=== PATIENT | male | born 1995 | race Caucasian/White ===

== ENCOUNTER 2019-07-20 09:07 | Emergency (ER) | payer OTHER ==
[~2019-07-20] VITALS: Ht 185.4 cm; Wt 84.1 kg
[2019-07-20] MEDS ORDERED: TYLENOL 1 GM (09:14)
[2019-07-20] MEDS ORDERED: NS 1,000 ML IV ONE (10:00)
[2019-07-20 10:12] LABS: BASO % 0.1 % (0.0-1.0); EOS % 0.1 % (0.0-3.0); HEMATOCRIT 36.5 % (42.0-52.0); HEMOGLOBIN 11.7 g/dl (13.5-17.5); LYMPH # 0.7 10^3/uL (1.5-5.0); MEAN CORPUSCULAR HEMOGLOBIN 28.7 pg (27.0-33.0); MEAN CORPUSCULAR HGB CONC 32.1 g/dl (32.0-36.5); MEAN CORPUSCULAR VOLUME 89.7 fl (80.0-96.0); MONO # 0.5 10^3/uL (0.0-0.8); MONO % 6.4 % (0.0-5.0); NEUTROPHILS # 6.9 10^3/uL (1.5-8.5); NEUTROPHILS % 84.9 % (36.0-66.0); PLATELET COUNT, AUTOMATED 253 10^3/uL (150-450); RED BLOOD COUNT 4.07 10^6/uL (4.30-6.10); WHITE BLOOD COUNT 8.1 10^3/uL (4.0-10.0)
--- NOTE | 2019-07-20 10:12 | REP ---
Chest x-ray: Two views. History: Fever and 56 . Comparison study: No comparison study . Findings: The lungs are well inflated and free of infiltrate. The pleural angles are sharp. The heart size is normal. Pulmonary vasculature is not increased. No significant bony abnormality is seen. Impression: Negative chest x-ray. Electronically Signed by Jonathon Levine MD 07/20/2019 10:03 A
[2019-07-20 10:49] LABS: INFLUENZA A AMPLIFICATION NEGATIVE (NEGATIVE); INFLUENZA B AMPLIFICATION NEGATIVE (NEGATIVE)
[2019-07-20 11:01] LABS: ALT/SGPT 27 U/L (12-78); AMYLASE 40 U/L (25-115); BLOOD UREA NITROGEN 12 MG/DL (7-18); CALCIUM LEVEL 8.4 MG/DL (8.5-10.1); CARBON DIOXIDE LEVEL 27 MEQ/L (21-32); CHLORIDE LEVEL 104 MEQ/L (98-107); CREATININE FOR GFR 0.96 MG/DL (0.70-1.30); GLOMERULAR FILTRATION RATE > 60.0 (>60); GLUCOSE, FASTING 100 MG/DL (70-100); LIPASE 56 U/L (73-393); POTASSIUM SERUM 4.3 MEQ/L (3.5-5.1); SODIUM LEVEL 137 MEQ/L (136-145); TOTAL PROTEIN 6.2 GM/DL (6.4-8.2)
[2019-07-20 11:03] LABS: MONO SCRN NEGATIVE (NEGATIVE)
[2019-07-20 11:18] LABS: APPEARANCE, URINE CLEAR (CLEAR); BACTERIA, URINE AUTO NEGATIVE (NEGATIVE); BILIRUBIN, URINE AUTO NEGATIVE (NEGATIVE); BLOOD, URINE BLOOD NEGATIVE (NEGATIVE); COLOR, URINE YELLOW (YELLOW); GLUCOSE, URINE (UA) AUTO NEGATIVE (NEGATIVE); KETONE, URINE AUTO NEGATIVE (NEGATIVE); LEUKOCYTE ESTERASE, URINE AUTO NEGATIVE (NEGATIVE); NITRITE, URINE AUTO NEGATIVE (NEGATIVE); PROTEIN, URINE AUTO NEGATIVE (NEGATIVE); RBC, URINE AUTO 2 /HPF (0-3); SPECIFIC GRAVITY URINE AUTO 1.013 (1.002-1.035); SQUAMOUS EPITHELIAL CELL UR AU 0 /HPF (0-6); UROBILINOGEN, URINE AUTO 0.2 mg/dL (0.0-2.0); WBC, URINE AUTO 1 /HPF (0-3)
[2019-07-20] MEDS ORDERED: ISOVUE-370 76% 100ML VIAL (Q9967) As Ordered ONE (11:34)
--- NOTE | 2019-07-20 12:19 | REP ---
CT abdomen and pelvis with IV but without oral contrast: History: Right upper quadrant pain, fever, fatigue. No comparison study. CT contrast dose: 100 mL of intravenous Isovue [address] findings: The liver is normal in size, homogeneous in texture. The spleen is enlarged measuring 15.9 cm in greatest dimension. It is homogeneous. No focal splenic lesion is observed. No abnormality is noted in the pancreas or gallbladder. No adrenal abnormality is observed. The kidneys enhance symmetrically and are morphologically intact. No retroperitoneal mass or adenopathy is observed. Small and large intestinal bowel loops are unremarkable. A normal appendix is seen medial to the cecum in the right lower quadrant. There is a small quantity of free fluid in the pelvic reflections and in the right inguinal region. Small and large bowel loops are normal in the abdomen and pelvis. There is no evidence of free intraperitoneal air. No bony destructive lesion is appreciated. Impression: Moderate enlargement of the spleen, 15.8 cm. Minimal ascitic fluid visible in the peritoneal reflections of the pelvis. No other abnormality. Normal appendix seen. Electronically Signed by Jonathon Levine MD 07/20/2019 01:13 P
[2019-07-20] MEDS ORDERED: KETOROLAC 30 MG/ML VIAL (J1885) IV ONE (14:00)
[2019-07-20] MEDS ORDERED: ACETAMINOPHEN 325 MG TAB PO ONE (14:00)
[2019-07-20 15:52] VITALS: BP 132/61
--- NOTE | 2019-07-21 10:41 | ED PDOC ---
Post-Departure Follow-Up ft rene ryan faxed fomral report of ct abd/p for fu Rosa Maria Scott MD Jul 21, 2019 10:41
[2019-07-22 00:16] LABS: Lyme Disease IgG/IgM Antibodie <0.91 ISR (0.00-0.90); Lyme Disease IgM Ab Quantitati <0.80 index (0.00-0.79)
== END 2019-07-20 16:02 | disposition home or self-care (01) ==
LOC: M ED 09:07
DX: B34.8 Other viral infections of unspecified site (principal)
CPT/HCPCS: 71046; 74177; 80053; 81001; 82150; 83605; 83690; 85025; 86308; 86617; 87502; 87798; 87880; 96361; 96374; 99284; J1885; Q9967

== ENCOUNTER 2019-07-24 14:47 | Inpatient (IN) | payer OTHER ==
[~2019-07-24] VITALS: Ht 185.4 cm; Wt 87.9 kg
[~2019-07-24 14:47] MED LIST: TYLENOL 1 GM
[2019-07-24] MEDS ORDERED: ACETAMINOPHEN 325 MG TAB PO ONE (16:00)
[2019-07-24] MEDS ORDERED: NS 1,000 ML IV ONE (16:00)
--- NOTE | 2019-07-24 16:22 | REP ---
Clinical: Cough and dyspnea . Comparison: 07/20/2019 . Technique: PA and lateral. Findings: The mediastinum and cardiac silhouette are normal. The lung luna are clear and without acute consolidation, effusion, or pneumothorax. The skeletal structures are intact and normal. Impression: 1. No acute cardiopulmonary process. Electronically Signed by Elvin Dotson MD 07/24/2019 04:14 P
[2019-07-24 17:39] LABS: ALBUMIN 3.1 GM/DL (3.2-5.2); ALT/SGPT 30 U/L (12-78); BILIRUBIN,DIRECT 0.1 MG/DL (0.0-0.2); BILIRUBIN,TOTAL 0.5 MG/DL (0.2-1.0); BLOOD UREA NITROGEN 15 MG/DL (7-18); CALCIUM LEVEL 8.9 MG/DL (8.5-10.1); CARBON DIOXIDE LEVEL 27 MEQ/L (21-32); CHLORIDE LEVEL 104 MEQ/L (98-107); CREATININE FOR GFR 0.94 MG/DL (0.70-1.30); GLOMERULAR FILTRATION RATE > 60.0 (>60); GLUCOSE, FASTING 90 MG/DL (70-100); SODIUM LEVEL 139 MEQ/L (136-145); TOTAL PROTEIN 6.7 GM/DL (6.4-8.2)
[2019-07-24 17:40] LABS: BASO % 0.1 % (0.0-1.0); EOS % 0.1 % (0.0-3.0); HEMATOCRIT 33.8 % (42.0-52.0); HEMOGLOBIN 11.1 g/dl (13.5-17.5); LYMPH # 0.7 10^3/uL (1.5-5.0); LYMPH % 7.4 % (24.0-44.0); MEAN CORPUSCULAR HEMOGLOBIN 29.1 pg (27.0-33.0); MEAN CORPUSCULAR HGB CONC 32.8 g/dl (32.0-36.5); MEAN CORPUSCULAR VOLUME 88.5 fl (80.0-96.0); MONO # 0.6 10^3/uL (0.0-0.8); MONO % 6.3 % (0.0-5.0); NEUTROPHILS # 8.6 10^3/uL (1.5-8.5); NEUTROPHILS % 85.6 % (36.0-66.0); PLATELET COUNT, AUTOMATED 236 10^3/uL (150-450); RED BLOOD COUNT 3.82 10^6/uL (4.30-6.10)
[2019-07-24] MEDS ORDERED: ISOVUE-370 76% 100ML VIAL (Q9967) As Ordered ONE (17:47)
--- NOTE | 2019-07-24 18:17 | REPVR ---
PROCEDURE INFORMATION: Exam: CT Angiography Chest With Contrast Exam date and time: 07/24/2019 4:12 PM Age: 24 years old Clinical history: Chest pain; Additional info: Cp fever TECHNIQUE: Imaging protocol: Computed tomographic angiography of the chest with intravenous contrast. 3D rendering: MIP reconstructed images were created and reviewed. Radiation optimization: All CT scans at this facility use at least one of these dose optimization techniques: automated exposure control; mA and/or kV adjustment per patient size (includes targeted exams where dose is matched to clinical indication); or iterative reconstruction. Contrast material: ISOVUE 370; Contrast volume: 75 ml; Contrast route: IV; COMPARISON: CR Chest, 2 view PA, Lat 07/24/2019 4:04 PM FINDINGS: Aorta: There is opacification of the aorta which appears intact. There is opacification of the pulmonary arteries with no evidence of pulmonary embolus. Thyroid: Normal thyroid. Lungs: Clear appearing lungs. Pleural space: Unremarkable. No pneumothorax. No pleural effusion. Heart: Unremarkable. No cardiomegaly. No pericardial effusion. Spleen: There is splenomegaly. Lymph nodes: Unremarkable. No enlarged lymph nodes. Bones/joints: There is mild kyphosis of the thoracic spine. Soft tissues: Unremarkable. IMPRESSION: 1. No evidence of pulmonary embolus. 2. Moderate splenomegaly . Electronically signed by: Joe Graf On 07/24/2019 18:17:40 PM
--- NOTE | 2019-07-24 20:04 | ECGEPIP ---
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
[2019-07-24] MEDS ORDERED: SODIUM CHLORIDE 0.9% 1000ML IV SCH (20:15)
[2019-07-24] MEDS ORDERED: ACET-907 PO (20:24)
[2019-07-24] MEDS ORDERED: IBUP200C28 PO (20:24)
[2019-07-24] MEDS ORDERED: IBUPROFEN 600 MG TAB PO ONE (20:45)
--- NOTE | 2019-07-24 20:55 | HPEPDOC ---
General Date of Admission Jul 24, 2019 at 20:02 Date of Service: Jul 24, 2019 Chief Complaint The patient is a 24-year-old male admitted with a reason for visit of Sepsis. Source: Patient Exam Limitations: No limitations Timing/Duration: Week(s) Severity: Severe Associated Symptoms: Fever, Malaise, Weakness History of Present Illness Patient is 24 years old male with past medical history of hypertension presented to the hospital with fever, chills, generalized fatigue. Patient stated that he has been feverish for 4 weeks, his fever was associated with malaise and fatigue. Patient stated that he lost his appetite. 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 He stated that when he was in the field he developed fever and then he returned to [place] he has been having fever up to 103 every day. Patient denies nausea, vomiting, diarrhea, joint pain, skin changes, visual changes, headache, dysuria. He stated that he was in the clinic in [place], he had lab work which did not reveal any abnormalities. In emergency room patient was found to have fever of 102, dyspnea with respiration rate of 20 and tachycardia with heart rate of 110. EKG showed sinus tachycardia with LVH. CTA was done and did not show any i nfiltrates or pulmonary emboli. CT of abdomen and pelvis was done on 07/20/19 and showed Moderate enlargement of the spleen, 15.8 cm. Minimal ascitic fluid visible in the peritoneal reflections of the pelvis. No other abnormality. Normal appendix seen. Usually his fever alleviated by Tylenol. Home Medications Scheduled PRN Acetaminophen (Tylenol) 325 Mg Tablet, 975 MG PO QID PRN for PAIN / FEVER, (Reported) Ibuprofen (Ibuprofen) 200 Mg Capsule, 600 MG PO QID PRN for PAIN / FEVER, (Reported) Allergies Coded Allergies: No Known Allergies (Unverified , 07/20/19) Past Medical History Medical History Hypertension Family History Father from heart attack Social History * Smoker: Denies, former Smoker Alcohol: Denies Drugs: denies A-FIB/CHADSVASC A-FIB History Current/History of A-Fib/PAF?: No Current PO Anticoag Therapy: No Review of Systems Constitutional: Reports: Chills, Fever, Weakness Eyes: Denies: Pain ENT: Denies: Head Aches Skin: Denies: Rash, Lesions Pulmonary: Reports: Dyspnea; Denies: Cough Cardiovascular: Denies: Chest Pain Gastrointestinal: Denies: Nausea, Vomiting Genitourinary: Denies: Dysuria, Frequency Hematologic: Denies: Bruising, Bleeding Excessively Endocrine: Denies: Polydipsia, Polyphagia Musculoskeletal: Denies: Neck Pain, Back Pain Neurological: Denies: Weakness Psych: Reports: Mood Normal Physical Examination General Exam: Positive: Alert, Cooperative Eye Exam: Positive: PERRLA, Conjunctiva & lids normal, EOMI ENT Exam: Positive: Mucous membr. moist/pink Neck Exam: Positive: Supple; Negative: JVD Chest Exam: Positive: Clear to auscultation Heart Exam: Positive: Tachycardic Telemetry: Positive: Sinus; Negative: Atrial fibrillation Abdomen Exam: Positive: Normal bowel sounds Extremity Exam: Negative: Clubbing, Cyanosis Skin Exam: Positive: Nl turgor and temperature; Negative: Rash Neuro Exam: Positive: Normal Gait, Strength at 5/5 X4 ext, Cranial Nerves 3-12 NL Psych Exam: Positive: Mental status NL Vital Signs Vital Signs Date Time Temp Pulse Resp B/P (MAP) Pulse Ox O2 Delivery O2 Flow Rate FiO2 07/24/19 20:09 101.6 113 18 129/59 (82) 99 Room Air Laboratory Data Labs 24H Laboratory Tests 2 07/24/19 16:56: Immature Granulocyte % (Auto) 0.5, Neutrophils (%) (Auto) 85.6H, Lymphocytes (%) (Auto) 7.4L, Monocytes (%) (Auto) 6.3H, Eosinophils (%) (Auto) 0.1, Basophils (%) (Auto) 0.1, Neutrophils # (Auto) 8.6H, Lymphocytes # (Auto) 0.7L, Monocytes # (Auto) 0.6, Eosinophils # (Auto) 0.0, Basophils # (Auto) 0.0, Nucleated Red Blood Cells % (auto) 0.0, Anion Gap 8, Glomerular Filtration Rate > 60.0, Lactic Acid Level 1.1, Calcium Level 8.9, Total Bilirubin 0.5, Direct Bilirubin 0.1, Aspartate Amino Transf (AST/SGOT) 17, Alanine Aminotransferase (ALT/SGPT) 30, Alkaline Phosphatase 70, Total Protein 6.7, Albumin 3.1L, Albumin/Globulin Ratio 0.86L 07/24/19 16:57: Urine Color YELLOW, Urine Appearance CLEAR, Urine pH 5.0, Urine Specific [place] 1.017, Urine Protein NEGATIVE, Urine Glucose (UA) NEGATIVE, Urine Ketones NEGATIVE, Urine Blood NEGATIVE, Urine Nitrite NEGATIVE, Urine Bilirubin N EGATIVE, Urine Urobilinogen 0.2, Urine Leukocyte Esterase NEGATIVE, Urine WBC (Auto) 1, Urine RBC (Auto) 2, Urine Hyaline Casts (Auto) 0, Urine Bacteria (Auto) NEGATIVE, Urine Squamous Epithelial Cells 0, Urine Mucus (Auto) SMALL, Urine Sperm (Auto) CBC/BMP Laboratory Tests 07/24/19 16:56 Microbiology Microbiology 07/24/19 Blood Culture, Received Pending 07/24/19 Respiratory Virus Panel (PCR) (JODIE) - Final, Complete 07/24/19 Blood Culture, Received Pending Assessment/Plan Patient is 24 years old male with past medical history of hypertension presented hospital with fever, chills, generalized fatigue. Patient stated that he has been feverish for 4 weeks, his fever was associated with malaise and fatigue. Patient stated that he lost his appetite. 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 He stated that when he was in the field he developed fever and then he returned to [place] he has been having fever up to 103 every day Problems (1) Sepsis Status: Acute Problem Text: Patient has a fever on presentation 102, with tachycardia and dyspnea Patient has been having fever up to 103 daily for past for 4 weeks after he returned from [place] IV fluid Vancomycin and Zosyn IV Blood culture, urine Cx (2) Fever Status: Acute Problem Text: Patient qualified for fever of unknown origin. Patient has an enlarge spleen on CT with normocytic anemia Differential diagnosis includes autoimmune diseases versus viral versus bacterial diseases I will check patient for EBV, CMV,MATTEO, rheumatoid factor, CRP, cryoglobulin, LDH, HIV, hepatitis panel, sedimentation rate Will check peripheral smear for malaria We will check PCR for Babesia I will repeat blood culture We'll check for QuantiFERON Gold Echo ordered (3) Abnormal EKG Status: Acute Problem Text: EKG showed sinus tachycardia with LVH and with questionable ST depression in the anterolateral leads Patient denies any chest pain Troponin ordered We will repeat EKG Telemetry (4) Anemia Status: Acute Problem Text: Normocytic anemia Patient has enlarged spleen, concern for sequestration We will check B12, folate, iron panel Plan / VTE VTE Prophylaxis Ordered?: Yes ABNER QUINN DO Jul 24, 2019 20:55
[2019-07-24] MEDS ORDERED: PIPERACILLIN/TAZOBACTAM SOD 4.5 GM in D5W MINI-BAG PLUS 50 ML IV SCH (21:00)
[2019-07-24 21:02] LABS: CK-MB VALUE MASS < 1.0 NG/ML (<3.6); CPK CREATINE PHOSPHOKINASE 48 U/L (39-308); MB/CK RELATIVE INDEX 2.08 (< OR =4); TROPONIN I < 0.02 NG/ML (< 0.10)
--- NOTE | 2019-07-24 21:18 | PHACANCOPD ---
PHARMACY VANCOMYCIN DOSING Pt Demographics Demographics Patient Age:24 , Weight:86.360 , Gender: male Adjusted Body Weight Date: 07/24/19, Adjusted Body Weight: [82.5] Kg Events Past 24 Hours Events Past 24 Hours: NO: Dialysis, Diuretic Therapy, Change in CrCl, Fever, Elevation in WBC, Pending Diagnostics, Pending Procedures, Other Vancomycin Vancomycin indication: SEPSIS Vancomycin Target Ranges: 15-20 mcg/ml Vancomycin Load Y/N: Yes Load Dose Date Time Vancomycin Load Dose: 2G Date:07/24/19 Time:22:00 Vancomycin Dose Date: 07/24/19. Current Vancomycin Dose: [1G IV Q8H] Intermittent Dosing?: No Labs Labs Item Value Date Time White Blood Count 10.0 10^3/uL 07/24/19 1656 Neutrophils # (Auto) 8.6 10^3/uL H 07/24/19 1656 Creatinine 0.94 MG/DL 07/24/19 1656 Micro Microbiology 07/24/19 Blood Culture, Received Pending 07/24/19 Respiratory Virus Panel (PCR) (OJDIE) - Final, Complete 07/24/19 Blood Culture, Received Pending Creatinine Clearance Date:07/24/19. Creatinine Clearance: [134ml/min]. Pending Labs TROUGH 07/25/19@21 Assessment and Plan Maintaining Current Dose?: Yes Reason for dose change: No Dose Change Pharmacist Note Pharmacist Note Date: 07/24/19. Pharmacist note:Pt is a 24 year old male being treated for sepsis goal trough 15-20mcg/ml. The patient has not been treated with vancomycin here at [facility] before. To achieve goal a 2g loading dose will start 07/24/19 @22:00. Maintenance therapy will consist of 1g IV q8h starting 07/25/19 @06:00. A trough is scheduled for 07/25/19 @21:00. We will continue to monitor and adjust the dose as needed. PATRICK LOPEZ PHARMACY Jul 24, 2019 21:18
[2019-07-24 21:23] LABS: ERYTHROCYTE SEDIMENTATION RATE 50 mm/hr (0-15)
[2019-07-24 21:49] LABS: HIV 1&2 SCREEN CENTAUR NEGATIVE (NEGATIVE)
[2019-07-24 21:50] VITALS: BP 147/68
[2019-07-24] MEDS: NS 1,000 ML IV SCH (21:53)
[2019-07-24] MEDS: HEPARIN SOD (PORCINE) 5000 UNITS/ML VIAL SC SCH (22:18)
[2019-07-24] MEDS: PIPERACILLIN/TAZOBACTAM SOD 3.375 GM in D5W MINI-BAG PLUS 50 ML IV SCH (22:18)
[2019-07-24] MEDS ORDERED: VANCOMYCIN HCL 1,000 MG, VIAL MATE ADAPTER 1 EACH in D5W 250 ML IV ONE (23:00)
[2019-07-24] MEDS: VANCOMYCIN HCL 1,000 MG, VIAL MATE ADAPTER 1 EACH in D5W 250 ML IV SCH (23:22)
[2019-07-24 23:59] VITALS: BP 136/60
[2019-07-25] VITALS (7 sets, daily range): BP systolic 122–144; BP diastolic 57–68
[2019-07-25] MEDS: NS 1,000 ML IV SCH ×3 (02:17→20:40)
[2019-07-25] MEDS ORDERED: LISINOPRIL 10 MG TAB PO ONE (02:30)
[2019-07-25] MEDS: PIPERACILLIN/TAZOBACTAM SOD 3.375 GM in D5W MINI-BAG PLUS 50 ML IV SCH ×3 (04:40→20:40)
[2019-07-25] MEDS: VANCOMYCIN HCL 1,000 MG, VIAL MATE ADAPTER 1 EACH in D5W 250 ML IV SCH ×2 (05:43→14:52)
[2019-07-25 05:44] LABS: HEMATOCRIT 30.8 % (42.0-52.0); HEMOGLOBIN 9.7 g/dl (13.5-17.5); MEAN CORPUSCULAR HEMOGLOBIN 28.3 pg (27.0-33.0); MEAN CORPUSCULAR HGB CONC 31.5 g/dl (32.0-36.5); MEAN CORPUSCULAR VOLUME 89.8 fl (80.0-96.0); PLATELET COUNT, AUTOMATED 197 10^3/uL (150-450); RED BLOOD COUNT 3.43 10^6/uL (4.30-6.10)
[2019-07-25 06:27] LABS: BLOOD UREA NITROGEN 15 MG/DL (7-18); CALCIUM LEVEL 7.5 MG/DL (8.5-10.1); CARBON DIOXIDE LEVEL 27 MEQ/L (21-32); CHLORIDE LEVEL 109 MEQ/L (98-107); CREATININE FOR GFR 0.78 MG/DL (0.70-1.30); GLOMERULAR FILTRATION RATE > 60.0 (>60); GLUCOSE, FASTING 101 MG/DL (70-100); IRON (FE) 14 UG/DL (65-175); LDH LACTATE DEHYDROGENASE 164 U/L (87-241); MAGNESIUM LEVEL 2.3 MG/DL (1.8-2.4); PERCENT SATURATION 11.2 % (19.7-50.0); POTASSIUM SERUM 3.9 MEQ/L (3.5-5.1); RHEUMATOID FACTOR QUANT < 10.0 IU/ML (<15.0); SODIUM LEVEL 140 MEQ/L (136-145); TOTAL IRON BINDING CAPACITY 125 UG/DL (250-450)
[2019-07-25] MEDS: LISINOPRIL 10 MG TAB PO SCH (08:34)
[2019-07-25] MEDS: ACETAMINOPHEN TAB 650MG DOSE (2X325MG) PO PRN (08:35)
[2019-07-25] MEDS: HEPARIN SOD (PORCINE) 5000 UNITS/ML VIAL SC SCH ×2 (08:35→20:40)
[2019-07-25 14:23] LABS: FOLATE 18.1 NG/ML (>5.4); VITAMIN B12 LEVEL 450 PG/ML (247-911)
--- NOTE | 2019-07-25 15:51 | IPNPDOC ---
Text Note Date of Service The patient was seen on 07/25/19. NOTE Subjective: -Afebrile overnight -This AM had a low grade temp -Complaining of R calf pain with ambulation that started a few days ago Objective: Vitals: see below. Hemodynamically stable, with low grade temp this AM General Exam: Well appearing, well developed young man, AOx3, NAD, appears flushed Eye Exam: ERRLA, Conjunctiva & lids normal, EOMI, anicteric, no injection ENT Exam: MMM, posterior oropharynx without exudates or erythema Neck Exam: Supple, no JVD, no adenopathy Chest Exam: CAT Heart Exam: RRR, no mrg Telemetry: Sinus without significant ectopy and no arrhythmias Abdomen Exam: Normal bowel sounds, soft, nontender, no palpable hepatomegaly or splenomegaly despite imaging confirming an enlarged spleen Extremity Exam: WWP, no LE edema, 2+ DP pulses, RLE with calf without erythema, palpable cords, lesions, rashes or swelling Skin Exam: normal temperature, no rashes, petechiae or sign of bruising or lesions Neuro Exam: Normal Gait, Strength at 5/5 X4 ext, Cranial Nerves 3-12 wnl Psych Exam: AOx3 Labs: Reviewed, see below. Imaging: reviewed see below. Micro: Pending UCx, quant gold, CMV, EBV, HIV, babesia, ehrlichia, Hep serologies, zika and malaria. BCX GREW GPCs pairs and chains. MRSA was negative Assessment/Plan 24 years old male with past medical history of hypertension presented hospital with fever, chills, generalized fatigue for 4 weeks in the setting of recently being in [place] for training camp now found to have radiographic splenomegaly with normocytic anemia and neutrophilia now with confirmed GPC in pairs and chains bacteremia with unclear source, pending extensive infectious work up and no antione fevers since starting vanc/zosyn last night, now de-escalated to zosyn after MRSA was negative and he grew GPCs in pairs and chains likely strep. Problems (1) Sepsis: Fever, tachycardia with SOB and generalized weakness, now with confirmed bacteremia -Had a fever on presentation 102, with tachycardia and dyspnea, reporting daily fevers up to 103 for 4 weeks -s/p IV fluid, continuing on 150cc/hr -continue zosyn IV, MRSA PCR negative so DC's vanc -follow up Blood culture speciation and sensivities, urine Cx and extensive infectious workup noted below (2) Fever -At this time, presented with fever of unknown etiology with an enlarged spleen on CT with normocytic anemia -Differential diagnosis includes autoimmune diseases versus viral versus bacterial diseases -Follow up extensive work up: EBV, CMV,MATTEO, rheumatoid factor, CRP, cryoglobulin, LDH, HIV, hepatitis panel -Elevated ESR and CRP suggesting significant inflammation -Pending malaria smear -follow up Babesia, Ehrlichia PCR -follow up Quant Gold -follow up pending TTE (3) Abnormal EKG: EKG showed sinus tachycardia with LVH and with questionable ST depression in the anterolateral leads without chest pain -Troponin negative -Telemetry without abnormal activity at this time -Pending TTE (4) Normocytic Anemia -Patient with noted enlarged spleen while having fevers, at this time with concern for sequestration -follow up B12, folate, iron panel (5) Hypertension: -Continue home lisinopril (6) RLE pain: -No evidence of soft tissue infection -RLE doppler US to r/o clot DVT prophylaxis: Heparin SQ Diet: Regular VS,Fishbone, I+O VS, Fishbone, I+O Laboratory Tests 07/24/19 16:56 07/25/19 05:20 Vital Signs Date Time Temp Pulse Resp B/P (MAP) Pulse Ox O2 Delivery O2 Flow Rate FiO2 07/25/19 04:00 97.0 85 16 141/65 (90) 99 Room Air I&O- Last 24 Hours up to 6 AM 07/25/19 06:00 Intake Total 2080 ml Output Total 650 ml Balance 1430 ml RAMANDEEP ROCK MD Jul 25, 2019 08:15
--- NOTE | 2019-07-25 17:40 | REPVR ---
PROCEDURE INFORMATION: Exam: US Duplex Right Lower Extremity Veins, Limited Exam date and time: 07/25/2019 5:10 PM Age: 24 years old Clinical history: Pain; Leg, lower; Right; Additional info: R calf pain TECHNIQUE: Imaging protocol: Real-time Duplex ultrasound of the Right Lower Extremity with 2-D rogers scale, color Doppler flow and spectral waveform analysis with image documentation. Limited exam was focused on the right lower extremity veins. COMPARISON: No relevant prior studies available. FINDINGS: Right deep veins: Unremarkable. The common femoral, femoral, popliteal and posterior tibial veins are patent without thrombus. Normal Doppler waveforms. Normal compressibility and/or augmentation response. Right superficial veins: Unremarkable. Saphenofemoral junction is patent without thrombus. Soft tissues: Unremarkable. IMPRESSION: No sonographic evidence of deep vein thrombosis. Electronically signed by: Venkatesh Marie On 07/25/2019 17:39:57 PM
--- NOTE | 2019-07-25 21:27 | ECHO ---
DATE OF PROCEDURE: 07/25/2019 REFERRING PHYSICIAN: Zeus Aldridge MD INDICATION: Abnormal ECG. HEIGHT: 185 cm WEIGHT: 86 kg. DIMENSIONS: IVS: 1.1 LV: 5.2 LVPW: 1.1 LA: 4.4 Aorta: 2.5 IVC: 2.1 Mitral E wave velocity: 111, A wave: 77 E prime septal: 10.7 E prime lateral: 21.1 FINDINGS The study is of excellent technical quality. The patient is in sinus tachycardia. Left ventricle is normal size and normal systolic function, I estimate left ventricular ejection fraction (LVEF) 70%. No segmental wall motion abnormalities are appreciated. Right ventricle also appears normal. Left atrium is mildly enlarged. Right atrium is probably normal size. The aortic valve has some thickening of cusps and there is an echodensity attached to the edge of cardiac cusp that probably represents thickening but in appropriate setting could also represent small vegetation measuring 0.8 x 0.3 cm. There is no obvious restriction of cusp mobility. Mitral, tricuspid and pulmonic valves appear normal. No pericardial effusion is noted. Inferior vena cava is mildly dilated but appropriately collapses with respiration. Aortic root and aortic arch appear normal. There appears to be some narrowing in the segment of descending aorta that potentially could represent mild coarctation. Doppler interrogation of aortic valve reveals trivial stenosis with mean gradient 11 mmHg and approximately moderate aortic insufficiency with very eccentric aortic insufficiency jet abutting anterior mitral leaflet. There is no significant mitral stenosis or insufficiency. There is trace tricuspid insufficiency with calculated likely normal pulmonary artery pressure. Pulmonic valve is functionally competent. Evaluation of diastolic function is normal based on mitral inflow pattern and tissue Doppler imaging of mitral annulus. There is minimally increased gradient across segment of descending aorta that appears narrowed by 2-D imaging. CONCLUSIONS 1. Study is of excellent technical quality. 2. Normal left ventricle (LV) size and systolic function, normal diastolic function. 3. Thickening of the edges of aortic cusps with echodensity attached which could represent only thickening of calcification, but in appropriate setting could also represent a small vegetation (0.8 x 0.3 cm). Resulting moderate aortic insufficiency. 4. No additional valvular disease. 5. Likely normal mildly elevated central venous pressure and normal pulmonary artery pressure. 6. Cannot completely rule out minimal coarctation of the descending aorta with fairly trivial gradient. COMMENT: I do recommend appropriate evaluation for possible endocarditis if fitting clinical picture.
[2019-07-26] MEDS: NS 1,000 ML IV SCH ×5 (03:46→19:46)
[2019-07-26 04:00] VITALS: BP 140/60
[2019-07-26] MEDS: PIPERACILLIN/TAZOBACTAM SOD 3.375 GM in D5W MINI-BAG PLUS 50 ML IV SCH ×3 (04:49→20:47)
[2019-07-26 08:00] VITALS: BP 133/61
[2019-07-26] MEDS: HEPARIN SOD (PORCINE) 5000 UNITS/ML VIAL SC SCH ×2 (09:16→20:47)
[2019-07-26] MEDS: LISINOPRIL 10 MG TAB PO SCH (09:16)
[2019-07-26 09:31] LABS: HEPATITIS B SURFACE ANTIGEN NEGATIVE (NEGATIVE)
[2019-07-26 09:58] LABS: HEPATITIS C VIRUS ABY INDEX 0.1 INDEX (<0.8)
[2019-07-26 10:00] LABS: HEPATITIS A ANTIBODY IGM NEGATIVE (NEGATIVE)
[2019-07-26 11:01] LABS: HEPATITIS B CORE ANTIBODY IGM NEGATIVE (NEGATIVE)
[2019-07-26 12:00] VITALS: BP 139/63
[2019-07-26 14:07] LABS: ANTINUCLEAR ANTIBODIES DIRECT Negative (Negative)
--- NOTE | 2019-07-26 14:15 | IPNPDOC ---
Text Note Date of Service The patient was seen on 07/26/19. NOTE Subjective: -Afebrile since starting antibiotics -Complaining of persistent R calf pain only with ambulation, was negative for clot and no clinical cellulitis -Had an update discussion about why he is still in the hospital and upcoming MENDEZ, ID consut and pending speciation and sensitivities for the GPCs in his blood. Both him and his were visibly concerned and anxious. Were reassured after our discussion. Objective: Vitals: see below. Hemodynamically stable General Exam: Well appearing, well developed young man, AOx3, NAD Eye Exam: PERRLA, Conjunctiva & lids normal, EOMI, anicteric, no injection ENT Exam: MMM, posterior oropharynx without antione exudates Neck Exam: Supple, no JVD, no adenopathy Chest Exam: CAT Heart Exam: RRR, no mrg auscultated on exam Abdomen Exam: Normal bowel sounds, soft, nontender, no palpable hepatomegaly or splenomegaly despite imaging confirming an enlarged spleen Extremity Exam: WWP, no LE edema, 2+ DP pulses, RLE with calf without erythema, palpable cords, lesions, rashes or swelling Skin Exam: normal temperature, no rashes, petechiae or sign of bruising or lesions Neuro Exam: Normal Gait, Strength at 5/5 X4 ext, Cranial Nerves 3-12 wnl Psych Exam: AOx3 Labs: Reviewed, see below. Imaging: reviewed see below. Micro: UA bland, quant gold negative, CMV pending, EBV pending, HIV negative, babesia pending, ehrlichia pending, Hep serologies pending, zika pending and malaria negative. BCX GREW GPCs pairs and chains. MRSA was negative. Resp viral panel was negative. Assessment/Plan 24 years old man with a history of hypertension who presented to the hospital with fever, chills, generalized fatigue for 4 weeks in the setting of recently being in [place] for training camp with reports of sleeping in wet tent and sleeping back outside as part of training in the rain, and transient R sided sore throat, found to have radiographic splenomegaly with normocytic anemia and neutrophilia now with confirmed GPC in pairs and chains bacteremia with unclear source, pending extensive infectious work up and no antione fevers since starting antibiotics, now de-escalated to zosyn, however with TTE c/f a small aortic veg vs. calcification pending a MENDEZ. Problems (1) Sepsis: Fever, tachycardia with SOB and generalized weakness, now with confirmed bacteremia -Had a fever on presentation 102, with tachycardia and dyspnea, reporting daily fevers up to 103 for 4 weeks -s/p IV fluid, continuing on 150cc/hr, will dc today -continue zosyn IV, MRSA PCR negative so DC'd vanc -follow up Blood culture speciation and sensivities, and extensive infectious workup noted below -Repeat blood cultures today for documentation of clearance of bacteremia (2) Fever -At this time, presented with fever of unknown etiology with an enlarged spleen on CT with normocytic anemia -Differential diagnosis includes autoimmune diseases versus viral versus bacterial diseases -Follow up extensive work up: EBV, CMV,MATTEO, rheumatoid factor, CRP, cryoglobulin, LDH, hepatitis panel -Elevated ESR and CRP suggesting significant inflammation, c/f endocarditis by Mejia's criteria given fevers, bacteremia, possible veg and elevated inflammatory markers. -Negative malaria smear -follow up Babesia, Ehrlichia PCR -Negative Quant Gold -TTE c/f a small veg --> consulted ID, not available today, and ordered MENDEZ that was tentatively scheduled for wednesday with Dr. Porter -Will try to do a rapid strep swab for source (3) Abnormal EKG: EKG showed sinus tachycardia with LVH and with questionable ST depression in the anterolateral leads without chest pain -Troponin negative -Telemetry without abnormal activity at this time -TTE with normal cardiac function but with potential small veg, see below (4)Concern for endocarditis: -TTE with normal cardiac function but with potential small veg on aortic leaflet vs. calcification, but given his presentation with persistent fevers and bacteremia, ordered MENDEZ -ID consulted, have no clear source at this time (5) Normocytic Anemia -Patient with noted enlarged spleen while having fevers, at this time with concern for sequestration -follow up low Fe and Fe sat, pending ferritin, will require supplementation after infection is treated (6) Hypertension: -Continue home lisinopril (7) RLE pain: -No evidence of soft tissue infection -RLE doppler US to r/o clot was negative DVT prophylaxis: Heparin SQ Diet: Regular VS,Fishbone, I+O VS, Fishbone, I+O Vital Signs Date Time Temp Pulse Resp B/P (MAP) Pulse Ox O2 Delivery O2 Flow Rate FiO2 11/27/19 08:00 97.7 96 18 133/61 (85) 99 Room Air I&O- Last 24 Hours up to 6 AM 07/26/19 06:00 Intake Total 7170 ml Output Total 7335 ml Balance -165 ml RAMANDEEP ROCK MD Jul 26, 2019 08:59
[2019-07-26 14:47] LABS: FERRITIN 392 NG/ML (26-388)
[2019-07-26 16:00] VITALS: BP 127/59
[2019-07-26 20:00] VITALS: BP 135/63
[2019-07-26 23:59] VITALS: BP 139/72
[2019-07-27] VITALS (7 sets, daily range): BP systolic 115–142; BP diastolic 56–72; PULSE 83
[2019-07-27] MEDS: NS 1,000 ML IV SCH (04:14)
[2019-07-27] MEDS: PIPERACILLIN/TAZOBACTAM SOD 3.375 GM in D5W MINI-BAG PLUS 50 ML IV SCH (05:06)
[2019-07-27 06:22] LABS: HEMATOCRIT 30.6 % (42.0-52.0); HEMOGLOBIN 10.1 g/dl (13.5-17.5); MEAN CORPUSCULAR HEMOGLOBIN 28.9 pg (27.0-33.0); MEAN CORPUSCULAR VOLUME 87.4 fl (80.0-96.0); PLATELET COUNT, AUTOMATED 247 10^3/uL (150-450)
[2019-07-27 06:43] LABS: BLOOD UREA NITROGEN 10 MG/DL (7-18); CALCIUM LEVEL 8.4 MG/DL (8.5-10.1); CARBON DIOXIDE LEVEL 29 MEQ/L (21-32); CHLORIDE LEVEL 107 MEQ/L (98-107); CREATININE FOR GFR 0.83 MG/DL (0.70-1.30); GLOMERULAR FILTRATION RATE > 60.0 (>60); GLUCOSE, FASTING 90 MG/DL (70-100); POTASSIUM SERUM 3.9 MEQ/L (3.5-5.1); SODIUM LEVEL 140 MEQ/L (136-145)
--- NOTE | 2019-07-27 07:59 | IPNPDOC ---
Text Note Date of Service The patient was seen on 07/27/19. NOTE Subjective: -Afebrile, doing well, feeling much better Interim events: -MENDEZ scheduled as add on with Dr. Porter on Wednesday -Sent strep throat culture -BCx showing Strep oralis sensitive to cetriaxone Objective: Vitals: see below. Hemodynamically stable General Exam: Well appearing, well developed young man, AOx3, NAD Eye Exam: PERRLA, Conjunctiva & lids normal, EOMI, anicteric, no injection ENT Exam: MMM, posterior oropharynx without antione exudates Neck Exam: Supple, no JVD, no adenopathy Chest Exam: CAT Heart Exam: RRR, no mrg auscultated on exam Abdomen Exam: Normal bowel sounds, soft, nontender, no palpable hepatomegaly or splenomegaly despite imaging confirming an enlarged spleen Extremity Exam: WWP, no LE edema, 2+ DP pulses, RLE with calf without erythema, palpable cords, lesions, rashes or swelling Skin Exam: normal temperature, no rashes, petechiae or sign of bruising or lesions Neuro Exam: Normal Gait, Strength at 5/5 X4 ext, Cranial Nerves 3-12 wnl MSK: No point tenderness in back, RLE with pain on foot eversion, and palpation over approximate calcaneous insertion and area below calf and pre-ankle Psych Exam: AOx3 Labs: Reviewed, see below. Imaging: reviewed see below. Micro: UA bland, quant gold negative, CMV pending, EBV pending, HIV negative, babesia pending, ehrlichia pending, Hep serologies pending, zika pending and malaria negative. BCX GREW Strep Oralis. MRSA was negative. Resp viral panel was negative. MATTEO, Cryo negative BLOOD CULTURE Final GRAM STAIN GRAM POSITIVE COCCI IN PAIRS AND CHAINS DATE POSITIVE DETECTED 07/25/19 Organism 1 STREPTOCOCCUS ORALIS 1. STREPTOCOCCUS ORALIS RX Route Dose M.I.C. ----- ----- --------- TETRACYCLINE R PO 250 mg qid >=16 PENICILLIN G I PO 250mg q6h fasting 0.25 I IV 1 mu q6h AMPICILLIN S PO 500mg q6h fasting <=0.25 S IV 500mg q6h CLINDAMYCIN S PO 150mg q6h <=0.25 S IV 600mg q6h LEVOFLOXACIN S PO 250mg qd 0.5 S PO 500mg qd S IV 500mg qd VANCOMYCIN S IV 500mg q8h 0.5 MOXIFLOXACIN (AVELOX) S PO 400MG QD 0.12 S IV 400MG QD CEFTRIAXONE S IV 1gm q24h <=0.12 CEFOTAXIME S IV 1gm q8h <=0.12 Assessment/Plan 24 years old man with a history of hypertension who presented to the hospital with fever, chills, generalized fatigue for 4 weeks in the setting of recently being in [place] for training camp with reports of sleeping in wet tent and sleeping back outside as part of training in the rain, and transient R sided sore throat, found to have radiographic splenomegaly with normocytic anemia and neutrophilia now with confirmed strep oralis bacteremia with likely source hav ing been strep pharyngitis with pending throat culture, as well as pending extensive infectious work up and no fevers since starting antibiotics, now de- escalated vanc/zosyn to ceftriaxone, with course c/b TTE c/f a small aortic veg vs. calcification pending a MENDEZ on Wednesday, as well as ID consult. Problems (1) Sepsis: Fever, tachycardia with SOB and generalized weakness, now confirmed to have been 2/2 to strep oralis bacteremia likely from strep pharyngitis -Had a fever on presentation 102, with tachycardia and dyspnea, reporting daily fevers up to 103 for 4 weeks, with initial sore throat -s/p IV fluids -switch from zosyn to ceftriaxone after sensitivities -follow up repeat 07/26 blood cultures for clearance, and the rest of the extensive infectious workup noted below (2) Fever: At this time, presented with fever of unknown etiology with an enlarged spleen on CT with normocytic anemia -Differential diagnosis initially included autoimmune diseases versus viral versus bacterial diseases -Follow up extensive work up: pending EBV, CMV, Babesia and ehrlichia -hepatitis panel, MATTEO, rheumatoid factor, CRP, cryoglobulin, LDH, malaria and TB quant gold were negative -Elevated ESR and CRP suggesting significant inflammation, c/f endocarditis by criteria given fevers, high risk strep oralis bacteremia, possible veg on TTE and elevated inflammatory markers. -consulted ID, yet to be seen when Dr. Mehta is back. -MENDEZ pending, scheduled for wednesday with Dr. Porter -Follow up throat culture (3) Abnormal EKG: EKG showed sinus tachycardia with LVH and with questionable ST depression in the anterolateral leads without chest pain -Troponin negative -Telemetry without abnormal activity at this time -TTE with normal cardiac function but with potential small veg, see below (4)Concern for endocarditis: -TTE with normal cardiac function but with potential small veg on aortic valve vs. calcification, but given his presentation with persistent fevers and high risk strep oralis bacteremia, ordered MENDEZ and is pending -Likely 2/2 strep pharyngitis, given presenting history--> streo throat culture pending (5) Normocytic Anemia -Patient with noted enlarged spleen while having fevers, at this time with concern for sequestration -follow up low Fe and Fe sat, pending ferritin, will require supplementation after infection is treated (6) Hypertension: -Continue home lisinopril (7) RLE pain: Exam most consistent with Peroneal vs. Achilles tendinopathy -No evidence of soft tissue infection -RLE doppler US to r/o clot was negative -will order PT and PRN ibuprofen and encourage rest as well DVT prophylaxis: Heparin SQ Diet: Regular VS,Fishbone, I+O VS, Fishbone, I+O Laboratory Tests 07/27/19 06:07 Vital Signs Date Time Temp Pulse Resp B/P (MAP) Pulse Ox O2 Delivery O2 Flow Rate FiO2 07/27/19 04:00 98.3 81 16 115/56 (75) 98 Room Air I&O- Last 24 Hours up to 6 AM 07/27/19 06:00 Intake Total 3660 ml Output Total 3450 ml Balance 210 ml RAMANDEEP ROCK MD Jul 27, 2019 07:59
[2019-07-27] MEDS ORDERED: cefTRIAXone SOD 1 GM VIAL (J0696) IM SCH (08:00)
[2019-07-27] MEDS: LISINOPRIL 10 MG TAB PO SCH (09:00)
[2019-07-27] MEDS: HEPARIN SOD (PORCINE) 5000 UNITS/ML VIAL SC SCH ×2 (09:01→20:03)
[2019-07-27] MEDS: cefTRIAXone SOD 1 GM in D5W MINI-BAG PLUS 50 ML IV SCH (09:14)
--- NOTE | 2019-07-27 11:46 | ECGEPIP ---
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
[2019-07-28] VITALS: BP 135/59
[2019-07-28 04:00] VITALS: BP 135/59
[2019-07-28 05:43] LABS: HEMATOCRIT 33.5 % (42.0-52.0); HEMOGLOBIN 10.6 g/dl (13.5-17.5); MEAN CORPUSCULAR HEMOGLOBIN 28.7 pg (27.0-33.0); MEAN CORPUSCULAR HGB CONC 31.6 g/dl (32.0-36.5); MEAN CORPUSCULAR VOLUME 90.8 fl (80.0-96.0); PLATELET COUNT, AUTOMATED 277 10^3/uL (150-450); RED BLOOD COUNT 3.69 10^6/uL (4.30-6.10); WHITE BLOOD COUNT 9.7 10^3/uL (4.0-10.0)
[2019-07-28 06:08] LABS: BLOOD UREA NITROGEN 15 MG/DL (7-18); CALCIUM LEVEL 8.4 MG/DL (8.5-10.1); CARBON DIOXIDE LEVEL 30 MEQ/L (21-32); CHLORIDE LEVEL 106 MEQ/L (98-107); CREATININE FOR GFR 0.86 MG/DL (0.70-1.30); GLOMERULAR FILTRATION RATE > 60.0 (>60); GLUCOSE, FASTING 92 MG/DL (70-100); POTASSIUM SERUM 4.1 MEQ/L (3.5-5.1); SODIUM LEVEL 141 MEQ/L (136-145)
[2019-07-28 08:00] VITALS: BP 141/63
[2019-07-28] MEDS: HEPARIN SOD (PORCINE) 5000 UNITS/ML VIAL SC SCH ×2 (08:19→21:34)
[2019-07-28] MEDS: LISINOPRIL 10 MG TAB PO SCH (08:20)
--- NOTE | 2019-07-28 10:23 | IPNPDOC ---
Text Note Date of Service The patient was seen on 07/28/19. NOTE Subjective: -Doing well, no complaints this morning Objective: Vitals: see below. Hemodynamically stable and afebrile General Exam: Well appearing, well developed young man, AOx3, NAD Eye Exam: PERRLA, Conjunctiva & lids normal, EOMI, anicteric, no injection ENT Exam: MMM, posterior oropharynx without antione exudates Neck Exam: Supple, no JVD, no adenopathy Chest Exam: CTAB Heart Exam: RRR, has a 2/6 systolic murmur noted that I did not auscultate on initial examination Abdomen Exam: Normal bowel sounds, soft, nontender, no palpable hepatomegaly or splenomegaly despite imaging confirming an enlarged spleen Extremity Exam: WWP, no LE edema, 2+ DP pulses, RLE with calf without erythema, palpable cords, lesions, rashes or swelling Skin Exam: normal temperature, no rashes, petechiae or sign of bruising or lesions Neuro Exam: Normal Gait, Strength at 5/5 X4 ext, Cranial Nerves 3-12 wnl Psych Exam: AOx3 Labs: Reviewed, see below. Stable anemia, Cr wnl, no leukocytosis. Imaging: reviewed see below. Micro: UA bland, quant gold negative, CMV pending, EBV pending, HIV negative, babesia pending, ehrlichia pending, Hep serologies pending, zika pending and malaria negative. BCX GREW Strep Oralis. Repeat BCx remains negative to date. MRSA was negative. Resp viral panel was negative. MATTEO and Cryo negative. BLOOD CULTURE Final GRAM STAIN GRAM POSITIVE COCCI IN PAIRS AND CHAINS DATE POSITIVE DETECTED 07/25/19 Organism 1 STREPTOCOCCUS ORALIS 1. STREPTOCOCCUS ORALIS RX Route Dose M.I.C. ----- ----- --------- TETRACYCLINE R PO 250 mg qid >=16 PENICILLIN G I PO 250mg q6h fasting 0.25 I IV 1 mu q6h AMPICILLIN S PO 500mg q6h fasting <=0.25 S IV 500mg q6h CLINDAMYCIN S PO 150mg q6h <=0.25 S IV 600mg q6h LEVOFLOXACIN S PO 250mg qd 0.5 S PO 500mg qd S IV 500mg qd VANCOMYCIN S IV 500mg q8h 0.5 MOXIFLOXACIN (AVELOX) S PO 400MG QD 0.12 S IV 400MG QD CEFTRIAXONE S IV 1gm q24h <=0.12 CEFOTAXIME S IV 1gm q8h <=0.12 Assessment/Plan 24 years old man with a history of hypertension who presented to the hospital with fever, chills, generalized fatigue for 4 weeks in the setting of recently being in [place] for training camp with reports of sleeping in wet tent and sleeping outside as part of training in the rain, and transient R sided sore throat, found to have radiographic splenomegaly with normocytic anemia and neutrophilia now with confirmed strep oralis bacteremia with likely source having been strep pharyngitis with pending throat culture, as well as pending extensive infectious work up and no fevers since starting antibiotics, now de-escalated vanc/zosyn to ceftriaxone, with course c/b TTE c/f a small aortic veg vs. calcification pending a MENDEZ on Wednesday, as well as ID consult. Problems (1) Severe sepsis 2/2 strep bacteremia from untreated strep pharyngitis: Fever, tachycardia with SOB and generalized weakness, now confirmed to have been 2/2 to strep oralis bacteremia likely from strep pharyngitis. -Had a fever on presentation 102, with tachycardia and dyspnea, reporting daily fevers up to 103 for 4 weeks, with initial sore throat -s/p IV fluids -Day #5 of antibiotics, now de-escalated to ceftriaxone after speciation and sensitivities -follow up repeat 07/26 blood cultures negative to date, and the rest of the extensive infectious workup noted below -Differential diagnosis initially included autoimmune diseases versus viral versus bacterial diseases: -Follow up pending EBV, CMV, Babesia and ehrlichia -hepatitis panel, MATTEO, rheumatoid factor, CRP, cryoglobulin, LDH, malaria and TB quant gold were negative -Elevated ESR and CRP suggesting significant inflammation, c/f endocarditis by criteria given fevers, high risk strep oralis bacteremia, possible veg on TTE. -MENDEZ pending, scheduled for wednesday with Dr. Porter -consulted ID, yet to be seen when Dr. Mehta is back. -Follow up throat culture (2) Abnormal EKG: EKG showed sinus tachycardia with LVH and with questionable ST depression in the anterolateral leads without chest pain -Troponin negative -Telemetry without abnormal activity at this time -TTE with normal cardiac function but with potential small veg, see below (3) Normocytic Anemia -Patient with noted enlarged spleen while having fevers, at this time with concern for sequestration -follow up low Fe and Fe sat, pending ferritin, will require supplementation after infection is treated (4) Hypertension: -Continue home lisinopril (5) RLE pain: Exam most consistent with Peroneal vs. Achilles tendinopathy -No evidence of soft tissue infection -RLE doppler US to r/o clot was negative -seen by PT with exercise recommendations DVT prophylaxis: Heparin SQ Diet: Regular VS,Fishbone, I+O VS, Fishbone, I+O Laboratory Tests 07/28/19 05:07 Vital Signs Date Time Temp Pulse Resp B/P (MAP) Pulse Ox O2 Delivery O2 Flow Rate FiO2 07/28/19 08:20 142/72 07/28/19 08:00 98.4 79 18 99 Room Air I&O- Last 24 Hours up to 6 AM 07/28/19 06:00 Intake Total 1620 ml Output Total 1945 ml Balance -325 ml RAMANDEEP ROCK MD Jul 28, 2019 10:23
[2019-07-28] MEDS: cefTRIAXone SOD 1 GM in D5W MINI-BAG PLUS 50 ML IV SCH (10:34)
[2019-07-28 12:00] VITALS: BP 139/60
[2019-07-28] MEDS ORDERED: SLF 3 ML SYR IV PRN (12:00)
[2019-07-28] MEDS: SLF 3 ML SYR IV SCH ×2 (12:33→21:34)
[2019-07-28 16:00] VITALS: BP 121/56
[2019-07-28] MEDS: IBUPROFEN 600 MG TAB PO PRN (18:32)
[2019-07-28 20:00] VITALS: BP 135/60
[2019-07-29] VITALS: BP 135/60
[2019-07-29 00:07] LABS: CMV QUANT DNA PCR (PLASMA) Negative (Negative)
[2019-07-29 04:00] VITALS: BP 125/60
[2019-07-29 04:37] LABS: HEMOGLOBIN 11.1 g/dl (13.5-17.5); MEAN CORPUSCULAR HGB CONC 31.7 g/dl (32.0-36.5); MEAN CORPUSCULAR VOLUME 91.4 fl (80.0-96.0); PLATELET COUNT, AUTOMATED 293 10^3/uL (150-450); RED BLOOD COUNT 3.83 10^6/uL (4.30-6.10)
[2019-07-29 04:58] LABS: BLOOD UREA NITROGEN 17 MG/DL (7-18); CALCIUM LEVEL 8.4 MG/DL (8.5-10.1); CARBON DIOXIDE LEVEL 28 MEQ/L (21-32); CHLORIDE LEVEL 109 MEQ/L (98-107); CREATININE FOR GFR 0.78 MG/DL (0.70-1.30); GLOMERULAR FILTRATION RATE > 60.0 (>60); GLUCOSE, FASTING 92 MG/DL (70-100); POTASSIUM SERUM 4.3 MEQ/L (3.5-5.1); SODIUM LEVEL 141 MEQ/L (136-145)
[2019-07-29] MEDS: SLF 3 ML SYR IV SCH ×3 (05:23→21:37)
[2019-07-29 08:00] VITALS: BP 140/60
[2019-07-29] MEDS: LISINOPRIL 10 MG TAB PO SCH (08:31)
[2019-07-29] MEDS: HEPARIN SOD (PORCINE) 5000 UNITS/ML VIAL SC SCH ×2 (08:31→21:37)
--- NOTE | 2019-07-29 08:52 | IPNPDOC ---
Text Note Date of Service The patient was seen on 07/29/19. NOTE Subjective: -Doing well, no complaints, afebrile, no chest pain, palpitations, RLE pain much improved. 10 point ROS was reviewed and otherwise negative. Objective: Vitals: see below. Hemodynamically stable and afebrile General Exam: Well appearing, well developed young man, AOx3, NAD Eye Exam: PERRLA, Conjunctiva & lids normal, EOMI, anicteric, no injection ENT Exam: MMM, posterior oropharynx without antione exudates Neck Exam: Supple, no JVD, no adenopathy Chest Exam: CTAB Heart Exam: RRR, has a 2/6 systolic murmur loudest at apex Abdomen Exam: Normal bowel sounds, soft, nontender, no palpable hepatosplenomegaly Extremity Exam: WWP, no LE edema, 2+ DP pulses Skin Exam: normal temperature, no rashes, petechiae or sign of bruising or lesions Neuro Exam: Normal Gait, Strength at 5/5 X4 ext, Cranial Nerves 3-12 wnl Psych Exam: AOx3 Labs: Reviewed, see below. Stable anemia, Cr wnl, WBC 10 Imaging: reviewed. Micro: Initial BCX GREW Strep Oralis and repeat BCx remains negative to date. UA was bland, quant gold negative, HIV, resp panel, Hep serologies, malaria, MRSA and throat GAS culture, were negative while zika, CMV, EBV, babesia, ehrlichia are still pending. Rheum labs thus far including MATTEO, RF, cryo were negative. Assessment/Plan 24 years old man with a history of hypertension who presented to the hospital with fever, chills, generalized fatigue for 4 weeks in the setting of recently being in [place] for training camp with reports of sleeping in wet tent and sleeping outside as part of training in the rain, and transient R sided sore throat, found to have radiographic splenomegaly with normocytic anemia and neutrophilia now with confirmed strep oralis bacteremia with likely source having been strep pharyngitis with pending throat culture, as well as pending extensive infectious work up and no fevers since starting antibiotics, now de- escalated vanc/zosyn to ceftriaxone, with course c/b TTE c/f a small aortic veg vs. calcification pending a MENDEZ on Wednesday, as well as ID consult for outpatient follow up. Problems (1) Severe sepsis 2/2 strep bacteremia from untreated strep pharyngitis: Fever, tachycardia with SOB and generalized weakness, now confirmed to have been 2/2 to strep oralis bacteremia likely from strep pharyngitis. -Had a fever on presentation 102, with tachycardia and dyspnea, reporting daily fevers up to 103 for 4 weeks, with initial sore throat -s/p IV fluids -Day #6 of antibiotics, now de-escalated to ceftriaxone after speciation and sensitivities -follow up repeat 07/26 blood cultures negative to date, and the rest of the extensive infectious workup noted below -Differential diagnosis initially included autoimmune diseases versus viral versus bacterial diseases: -Follow up pending EBV, CMV, Babesia and ehrlichia -hepatitis panel, MATTEO, rheumatoid factor, cryoglobulin, LDH, malaria and TB quant gold were negative -Elevated ESR and CRP suggesting significant inflammation, c/f endocarditis by criteria given fevers, high risk strep oralis bacteremia, possible veg on TTE. -MENDEZ pending, scheduled for wednesday with Dr. Porter -consulted ID, Dr. Mehta will establish for outpatient f/u and discharge abx plan when she is back. (2) Abnormal EKG: EKG showed sinus tachycardia with LVH and with questionable ST depression in the anterolateral leads without chest pain -Troponin negative -Telemetry without abnormal activity at this time -TTE with normal cardiac function but with potential small veg, see below (3) Normocytic Anemia -Patient with noted enlarged spleen while having fevers, at this time with concern for sequestration -follow up low Fe and Fe sat, pending ferritin, will require supplementation after infection is treated (4) Hypertension: -Continue home lisinopril (5) RLE pain: Exam most consistent with Peroneal vs. Achilles tendinopathy -No evidence of soft tissue infection -RLE doppler US to r/o clot was negative -seen by PT with exercise recommendations DVT prophylaxis: Heparin SQ Diet: Regular VS,Fishbone, I+O VS, Fishbone, I+O Laboratory Tests 07/29/19 04:23 Vital Signs Date Time Temp Pulse Resp B/P (MAP) Pulse Ox O2 Delivery O2 Flow Rate FiO2 07/29/19 08:31 140/60 07/29/19 04:00 96.4 80 18 100 Room Air I&O- Last 24 Hours up to 6 AM 07/29/19 06:00 Intake Total 1780 ml Output Total 2750 ml Balance -970 ml RAMANDEEP ROCK MD Jul 29, 2019 08:52
[2019-07-29] MEDS: cefTRIAXone SOD 1 GM in D5W MINI-BAG PLUS 50 ML IV SCH (11:03)
[2019-07-29 12:00] VITALS: BP 137/63
[2019-07-29] MEDS ORDERED: cefTRIAXone SOD 1 GM VIAL (J0696) IM ONE (13:00)
[2019-07-29] MEDS ORDERED: LIDOCAINE 1% SDV 5 ML VIAL DILUENT ONE (13:00)
[2019-07-29] MEDS ORDERED: cefTRIAXone SOD 1 GM in D5W MINI-BAG PLUS 50 ML IV ONE (14:00)
[2019-07-29] MEDS: IBUPROFEN 600 MG TAB PO PRN (14:53)
[2019-07-29 16:00] VITALS: BP 111/72
[2019-07-29 20:00] VITALS: BP 136/58
[2019-07-30] VITALS (8 sets, daily range): BP systolic 129–146; BP diastolic 59–65
[2019-07-30 05:15] LABS: HEMATOCRIT 32.1 % (42.0-52.0); HEMOGLOBIN 10.2 g/dl (13.5-17.5); MEAN CORPUSCULAR HEMOGLOBIN 28.3 pg (27.0-33.0); MEAN CORPUSCULAR HGB CONC 31.8 g/dl (32.0-36.5); MEAN CORPUSCULAR VOLUME 89.2 fl (80.0-96.0); PLATELET COUNT, AUTOMATED 273 10^3/uL (150-450); WHITE BLOOD COUNT 11.4 10^3/uL (4.0-10.0)
[2019-07-30 05:36] LABS: BLOOD UREA NITROGEN 18 MG/DL (7-18); CALCIUM LEVEL 8.1 MG/DL (8.5-10.1); CARBON DIOXIDE LEVEL 29 MEQ/L (21-32); CHLORIDE LEVEL 107 MEQ/L (98-107); CREATININE FOR GFR 0.72 MG/DL (0.70-1.30); GLOMERULAR FILTRATION RATE > 60.0 (>60); GLUCOSE, FASTING 102 MG/DL (70-100); SODIUM LEVEL 140 MEQ/L (136-145)
[2019-07-30] MEDS: SLF 3 ML SYR IV SCH ×3 (05:56→22:29)
[2019-07-30] MEDS: HEPARIN SOD (PORCINE) 5000 UNITS/ML VIAL SC SCH ×2 (08:39→20:51)
[2019-07-30] MEDS: LISINOPRIL 10 MG TAB PO SCH (08:39)
[2019-07-30] MEDS ORDERED: cefTRIAXone SOD 2 GM in D5W MINI-BAG PLUS 50 ML IV SCH (09:00)
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
[2019-07-30] MEDS: PIPERACILLIN/TAZOBACTAM SOD 3.375 GM in D5W MINI-BAG PLUS 50 ML IV SCH ×2 (15:36→20:51)
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
[2019-07-30] MEDS: VANCOMYCIN HCL 1,000 MG, VIAL MATE ADAPTER 1 EACH in D5W 250 ML IV SCH ×2 (16:32→23:17)
[2019-07-30] MEDS ORDERED: VANCOMYCIN HCL 500 MG in D5W MINI-BAG PLUS 100 ML IV ONE (17:30)
[2019-07-30] MEDS: ACETAMINOPHEN TAB 650MG DOSE (2X325MG) PO PRN (20:52)
[2019-07-31] MEDS: PIPERACILLIN/TAZOBACTAM SOD 3.375 GM in D5W MINI-BAG PLUS 50 ML IV SCH (03:51)
[2019-07-31 04:00] VITALS: BP 126/58
[2019-07-31] MEDS: SLF 3 ML SYR IV SCH (06:02)
--- NOTE | 2019-07-31 06:21 | ECHO ---
DATE OF STUDY: 07/30/2019 DATE OF : 1995 AGE: 24 ROOM #: [id number] REASON FOR ECHOCARDIOGRAM: Increased shortness of breath. Patient with vegetations of the aortic valve waiting for MENDEZ. 2-D MEASUREMENTS: IVS: 1.1 cm LV: 1.0 cm LVPW: 5.3 cm Aorta: 2.4 cm LA: 3.9 cm IVC: 2.5 cm RV: 2.5 cm DOPPLER MEASUREMENTS: Peak velocity across the aortic valve: 2.1 m/s Peak gradient across the aortic valve: 18 mmHg Mitral E: 1.1 Mitral A: 0.7 Ratio: 1.4 Maximum tricuspid valve velocity: 2.3 m/s 2-D COMMENTS: 1. Normal left ventricular size, wall thickness, and normal global left ventricular systolic function. The estimated global left ventricular systolic ejection fraction is 65-70%. 2. Normal left atrium. Normal right atrium and right ventricle. 3. The atrial septum appeared to be normal without evidence of defect or shunt. 4. Normal aortic root. 5. Trace pericardial effusion noted mainly at the base and mid left ventricle. No evidence of cardiac tamponade. 6. Echogenic structures noted on the aortic valve and the largest was on the ventricular side of the aortic valve and measured 1.1 cm x 0.3 cm. The mitral valve, as well as the, tricuspid valve and the pulmonic valve appeared to be normal. The proximal pulmonary artery branches also appeared to be normal. 7. The inferior vena cava is mildly enlarged, central venous pressure might be elevated. DOPPLER: Detects severe aortic radiation, trace mitral regurgitation, trace tricuspid regurgitation. The calculated pulmonary artery systolic pressure is normal. Assessment of the left ventricular diastolic function appeared to be normal. IMPRESSION: 1. Normal global left ventricular systolic and diastolic function. 2. Severe aortic regurgitation in the setting of endocarditis involving the aortic valve. This was compared with prior echocardiogram done on 07/25/2019 and it seems that the aortic regurgitation is now more severe. The case was discussed with the hospitalist covering and urgent referral for further management, aortic valve replacement was recommended. This is currently being arranged. 3. Trace mitral regurgitation. 4. Trace tricuspid regurgitation with a normal calculated pulmonary artery systolic pressure. 5. Trace pericardial effusion. 6. The inferior vena cava is mildly enlarged, central venous pressure might be elevated.
[2019-07-31 06:26] LABS: HEMOGLOBIN 10.5 g/dl (13.5-17.5); MEAN CORPUSCULAR HEMOGLOBIN 28.9 pg (27.0-33.0); MEAN CORPUSCULAR HGB CONC 32.8 g/dl (32.0-36.5); MEAN CORPUSCULAR VOLUME 88.2 fl (80.0-96.0); PLATELET COUNT, AUTOMATED 293 10^3/uL (150-450); RED BLOOD COUNT 3.63 10^6/uL (4.30-6.10); WHITE BLOOD COUNT 11.6 10^3/uL (4.0-10.0)
[2019-07-31 06:54] LABS: BLOOD UREA NITROGEN 14 MG/DL (7-18); CALCIUM LEVEL 8.1 MG/DL (8.5-10.1); CARBON DIOXIDE LEVEL 29 MEQ/L (21-32); CHLORIDE LEVEL 107 MEQ/L (98-107); CREATININE FOR GFR 0.93 MG/DL (0.70-1.30); GLOMERULAR FILTRATION RATE > 60.0 (>60); GLUCOSE, FASTING 90 MG/DL (70-100); POTASSIUM SERUM 3.9 MEQ/L (3.5-5.1); SODIUM LEVEL 141 MEQ/L (136-145)
[2019-07-31] MEDS: VANCOMYCIN HCL 1,000 MG, VIAL MATE ADAPTER 1 EACH in D5W 250 ML IV SCH (07:58)
[2019-07-31 08:00] VITALS: BP 119/56
[2019-07-31 09:09] VITALS: BP 119/81
[2019-07-31] MEDS: LISINOPRIL 10 MG TAB PO SCH (09:09)
[2019-07-31] MEDS: HEPARIN SOD (PORCINE) 5000 UNITS/ML VIAL SC SCH (09:09)
[2019-07-31 09:37] VITALS: BP 125/60
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
== END 2019-07-31 09:48 | disposition short-term general hospital (02) | DRG 871 ==
LOC: M ED 14:47 → M ED INP 20:02 → M PCU 21:45 → M ICU 07-30 17:30
PROVIDERS: ADMIT Internal Medicine; ATTEND Internal Medicine
DX: A40.8 Other streptococcal sepsis (principal); I33.9 Acute and subacute endocarditis, unspecified; D64.9 Anemia, unspecified; I10 Essential (primary) hypertension; R16.1 Splenomegaly, not elsewhere classified; Z87.891 Personal history of nicotine dependence; J02.0 Streptococcal pharyngitis; R65.20 Severe sepsis without septic shock; M76.71 Peroneal tendinitis, right leg; I35.1 Nonrheumatic aortic (valve) insufficiency

== ENCOUNTER → 2019-08-17 | Outpatient (REF) | payer OTHER ==
[~2019-08-17] MED LIST changes: +ACET-907 PO; +IBUP200C28 PO
[2019-08-17 12:52] LABS: BASO % 0.2 % (0.0-1.0); EOS # 0.2 10^3/uL (0.0-0.5); EOS % 2.6 % (0.0-3.0); HEMATOCRIT 29.9 % (42.0-52.0); HEMOGLOBIN 9.7 g/dl (13.5-17.5); LYMPH # 1.7 10^3/uL (1.5-5.0); LYMPH % 19.5 % (24.0-44.0); MEAN CORPUSCULAR HEMOGLOBIN 29.1 pg (27.0-33.0); MEAN CORPUSCULAR HGB CONC 32.4 g/dl (32.0-36.5); MEAN CORPUSCULAR VOLUME 89.8 fl (80.0-96.0); MONO # 0.9 10^3/uL (0.0-0.8); MONO % 9.7 % (0.0-5.0); NEUTROPHILS # 5.9 10^3/uL (1.5-8.5); PLATELET COUNT, AUTOMATED 411 10^3/uL (150-450); RED BLOOD COUNT 3.33 10^6/uL (4.30-6.10); WHITE BLOOD COUNT 8.7 10^3/uL (4.0-10.0)
[2019-08-17 13:17] LABS: ALBUMIN 3.3 GM/DL (3.2-5.2); ALT/SGPT 35 U/L (12-78); BILIRUBIN,TOTAL 0.3 MG/DL (0.2-1.0); BLOOD UREA NITROGEN 16 MG/DL (7-18); CARBON DIOXIDE LEVEL 28 MEQ/L (21-32); CHLORIDE LEVEL 103 MEQ/L (98-107); CREATININE FOR GFR 0.83 MG/DL (0.70-1.30); GLOMERULAR FILTRATION RATE > 60.0 (>60); GLUCOSE, FASTING 79 MG/DL (70-100); POTASSIUM SERUM 4.4 MEQ/L (3.5-5.1); SODIUM LEVEL 137 MEQ/L (136-145); TOTAL PROTEIN 6.6 GM/DL (6.4-8.2)
== END ==
LOC: M LAB REF 12:35
DX: Z95.2 Presence of prosthetic heart valve (principal)

== ENCOUNTER → 2019-09-29 | Outpatient (RCR) | payer OTHER ==
--- NOTE | 2019-09-14 10:50 | CARECAPL ---
Assessment Account #s: Initial Assessment General Diagnoses: AVR Date of event: Aug 07, 2019 Physician: PATRICK CHAHAL MD Allergies: Coded Allergies: No Known Allergies (Unverified , 07/20/19) Date Entered Program: Sep 14, 2019 Risk strat for cardiac event: Low Exercise Assessment: Initial Assessment Stages of change: Contemplate Exercise Prescription Plan TO EDUCATE AND BUILD ENDURANCE THROUGH MONITORED EXERCISE Modalities initiated: Treadmill (WILL ADD), Cardio-Strider (WILL ADD), Nustep (WILL ADD), Arm Aerometer (WILL ADD), Dumbells (WILL ADD), Recumbent Bike (WILL ADD) Frequency: 3 Duration (Minutes) 30 - 60 minutes total exercise a day. 15 - 20 work intervals in minutes. PRN rest intervals in minutes. Functional Capacity Goal Sustained Metabolic Equivalent of a task (MET) goal of 2.75-3.25 for 15-20 minutes. Intensity: 3-Moderate Progression (METS) Increase by: 0.5 METS every: 5 sessions TOLERATED Angina with ex: No Target Heart Rate REST +35-40 Resistance Training: Yes Weight (pounds): 2 Reps: 12-15 Hypertension: Yes Hypertension controlled with: Medication (LISINOPRIL,HYDRALAZINE,METOPROLOL) Resting 146/77 Medications Scheduled Aspirin (Aspir 81), 81 MG PO DAILY, (Reported) Hydralazine HCl (Hydralazine HCl), 10 MG PO TID, (Reported) Lisinopril (Lisinopril), 10 MG PO DAILY, (Reported) Metoprolol Tartrate (Lopressor), 25 MG PO BID, (Reported) Warfarin Sod (Coumadin), 1 TAB PO DAILY, (Reported) Current BP 146/77 Med Change: No Intervention Resistance Training: Yes Education: Self pulse (PATIENT DEMONSTRATES TAKING HIS OWN PULSE), S/S to report (PATIENT VERBALIZES UNDERSTANDING OF IMPORTANCE OF REPORTING CHEST PAIN/SOB), BP medication (REVIEWED B/P MEDS LISINOPRIL, METOPROLOL, AND HYDRALAZINE, PATIENT VERBALIZES UNDERSTANDING), warm up/cool down (DISCUSSED WARM UP/COOL DOWN PRIOR TO AND FOLLOWING EXERCISE) Target Goals Individual exercise Rx (1) BP 140/90 or 130/80 if DM or CKD (1) Aerobic active 30+min 5 days per week (1) Nutrition Date: Sep 14, 2019 Assessment: Initial Assessment Stages of change: Contemplate Med Change: No Diabetes Diabetes: No Monitor Blood Sugar at home: No Medication Change: No Blood sugar in range: No Special Diet: regular Alcohol: weekly Alcohol Type: beer Alcohol Amount: 2 Diet Access Tool: Rate your plate Score: 49 Current Weight (pounds): 197.6 Weight Goal 185 Intervention Bakery Associate Consult: No Nurse/patient discussion: Yes Dietary Goals EATING A HEART HEALTHY DIET, LESS EATING OUT FOR DINNER, MORE FRUITS AND VEGETABLES Diet Class: Yes (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 IN PROGRAM) Referral to Diabetes education: No Referral to lipid clinic: No Referral to weight mangement p: No Education Eating Healthy Target goal LDL-C<100 if triglycerides are >200 Non-HDL-C should be <130 (1) LDL-C<70 for high risk patients (4) HbA1c<7% (1) BMI<25 Waist cir<40in M/<35in F (1) Education Date: Sep 14, 2019 Assessment: Initial Assessment Learning Barriers: ready Knowledge Test Score: 10 Stages of change: Contemplate Family Support: Yes Tobacco use: No Quit: >6 months (SMOKED FOR 8 YEARS LESS THAN 1 PPD, QUIT January,) Tobacco Use Smokeless tobacco: No Intervention Referral to smoking cessation: No Individual education and couns: No Tobacco Adjunct: No Education class schedule given: No Attended education classes: No Education: tobacco triggers (DISCUSSED POSSIBLE TRIGGERS SUCH SMOKING AFTER MEALS, WHILE DRIVING, AT CERTAIN TIMES OF DAY), med compliance (DISCUSSED IMPORTANCE OF BEING COMPLIANT WITH MEDICATIONS) Target Goals Complete cessation of tobacco use (1). Psychosocial Date: Sep 14, 2019 Assessment: Initial Assessment Psych Test (Initial/Discharge) Tool Used: Other (PHQ-9) Score: 1 Stages of change: Contemplate Intervention Physician Consult: No Physician Referral: No Med Change: No Stress Management Class: No Uses Stress Management Skills: Yes Education Education: S/S depression (DISCUSSED S/S OF DEPRESSION SUCH WITHDRAWAL, POOR APPETITE, LACK OF INTEREST) Target Goal Assess presence or absence of depression using a valid screening tool (1). Maximize coping skills (2). Positive support system (2). Patient/Program Goal Preventative Medication: Yes Aspirin, Yes Beta blockade, Yes MARLENY Inhibitor, Yes Other (COUMADIN) Fall Risk Assess: Yes (NOT A FALL RISK) Provider Assessment Session Number: 1 Provider Assessment: Proceed with rehab [facility],Silver RN Sep 14, 2019 10:50
[~2019-09-29] MED LIST changes: +ASPI81TA85 PO; +HYDR10TAB PO; +LISI10TA4 PO; +LOPR1TAB6 PO; +WARF05TA PO
== END ==
LOC: M CR 09-14 08:51
PROVIDERS: ATTEND Internal Medicine Cardiovascular Disease
DX: Z95.3 Presence of xenogenic heart valve (principal); I35.0 Nonrheumatic aortic (valve) stenosis

== ENCOUNTER 2019-10-19 10:45 | Outpatient (RCR) | payer OTHER ==
--- NOTE | 2019-10-02 16:05 | CARECAPL ---
Assessment Account #s: Re-Assessment I General Diagnoses: AVR Date of event: Aug 07, 2019 Physician: PATRICK CHAHAL MD Allergies: Coded Allergies: No Known Allergies (Unverified , 07/20/19) Date Entered Program: Sep 14, 2019 Risk strat for cardiac event: Low Exercise Date: Oct 02, 2019 Assessment: Re-Assessment I Stages of change: Contemplate Exercise Prescription Plan TO EDUCATE AND BUILD ENDURANCE THROUGH MONITORED EXERCISE PROGRAM Modalities initiated: Treadmill (METS=3.53/RPE=2), Nustep (METS=5.5/RPE=2), Arm Aerometer (METS=3.2/RPE=3), Dumbells (4#/RPE=3), Recumbent Bike (METS=4.8/RPE=3) Frequency: 3 Duration (Minutes) 30 - 60 minutes total exercise a day. 15 - 20 work intervals in minutes. PRN rest intervals in minutes. Functional Capacity Goal Sustained Metabolic Equivalent of a task (MET) goal of 4.0-5.0 for 15-20 minutes. Intensity: 3-Moderate Progression (METS) Increase by: 0.5 METS every: 3-5 sessions TOLERATED Angina with ex: No Target Heart Rate REST + 35-40 BASED ON BETA ARCHIE THERAPY Resistance Training: Yes Weight (pounds): 4 Reps: 12-15 Hypertension: Yes Hypertension controlled with: Medication Resting 116/76 Peak Exercise BP 142/90 Medications Scheduled Aspirin (Aspir 81), 81 MG PO DAILY, (Reported) Hydralazine HCl (Hydralazine HCl), 10 MG PO TID, (Reported) Lisinopril (Lisinopril), 10 MG PO DAILY, (Reported) Metoprolol Tartrate (Lopressor), 25 MG PO BID, (Reported) Warfarin Sod (Coumadin), 1 TAB PO DAILY, (Reported) Current BP 128/62 Med Change: No Intervention Resistance Training: Yes Education: Self pulse (SEE ON PREVIOUS ITP) Education Goals Met: Yes (PROGRESSING TOWARD GOALS) Target Goals Individual exercise Rx (1) BP 140/90 or 130/80 if DM or CKD (1) Aerobic active 30+min 5 days per week (1) Nutrition Date: Oct 02, 2019 Assessment: Re-Assessment I Stages of change: Contemplate Med Change: No Diabetes Diabetes: No Monitor Blood Sugar at home: No Medication Change: No Weight Management Weight (lbs): 197.6 Special Diet: regular Alcohol: weekly Alcohol Type: beer Alcohol Amount: 2 Current Weight (pounds): 197.6 Weight Goal 180 Intervention Grocery Bagger Consult: No Nurse/patient discussion: Yes Dietary Goals HEART HEALTHY DIET CHOICES Diet Class: Yes (WILL SEE COMMERCIAL LEASING AGENT WHILE IN PROGRAM) Referral to Diabetes education: No Referral to lipid clinic: No Referral to weight mangement p: No Education Eating Healthy Education Goals Met: Yes (PROGRESSING TOWARD GOALS) Target goal LDL-C<100 if triglycerides are >200 Non-HDL-C should be <130 (1) LDL-C<70 for high risk patients (4) HbA1c<7% (1) BMI<25 Waist cir<40in M/<35in F (1) Education Date: Oct 02, 2019 Assessment: Re-Assessment I Learning Barriers: ready Stages of change: Contemplate Family Support: Yes Tobacco use: No Tobacco Use Smokeless tobacco: No Intervention Referral to smoking cessation: No Individual education and couns: No Tobacco Adjunct: No Education class schedule given: No Attended education classes: No Education: tobacco triggers (SEE PREVIOUS ITP) Education Goals Met: Yes (PROGRESSING TOWARD GOALS) Target Goals Complete cessation of tobacco use (1). Psychosocial Date: Oct 02, 2019 Assessment: Re-Assessment I Stages of change: Contemplate Intervention Physician Consult: No Physician Referral: No Med Change: No Stress Management Class: No Uses Stress Management Skills: Yes Education Education: Relaxation Techniques (DISCUSSED LISTENING TO MUSIC, EXERCISE, DOING ACTIVITY THAT HE ENJOYS) Education Goals Met: Yes (PROGRESSING TOWARD GOALS) Target Goal Assess presence or absence of depression using a valid screening tool (1). Maximize coping skills (2). Positive support system (2). Patient/Program Goal Preventative Medication: Yes Aspirin, Yes Beta blockade, Yes MARLENY Inhibitor, Yes Other (COUMADIN) Fall Risk Assess: Yes (NOT A FALL RISK) Provider Assessment Session Number: 4 Provider Assessment: Proceed with rehab Silver Norris RN Oct 02, 2019 16:05
[2019-10-12 09:45] VITALS: BP 110/78
[2019-10-12 10:36] VITALS: BP 152/86
[~2019-10-19] VITALS: Ht 185.4 cm; Wt 94.1 kg
[2019-10-19 10:25] VITALS: BP 142/78
[2019-10-19 10:43] VITALS: BP 160/90
[2019-10-19 11:25] VITALS: BP 132/76
[2019-10-23] MEDS ORDERED: MAGN1.743 PO ×2 (08:58→09:29)
[2019-10-23] MEDS ORDERED: MIRA3350 PO ×2 (08:58→09:29)
--- NOTE | 2019-10-23 17:32 | CARECAPL ---
Assessment Account #s: Re-Assessment II General Diagnoses: AVR Date of event: Aug 17, 2019 Physician: PATRICK CHAHAL MD Allergies: Coded Allergies: No Known Allergies (Unverified , 07/20/19) Date Entered Program: Sep 14, 2019 Risk strat for cardiac event: Low Exercise Date: Oct 23, 2019 Assessment: Re-Assessment II Stages of change: Contemplate Exercise Prescription Plan TO EDUCATE AND BUILD ENDURANCE THROUGH MONITORED EXERCISE PROGRAM Modalities initiated: Treadmill (METS=4.77/RPE=2), Nustep (METS=5.2/RPE=2), Arm Aerometer (METS=3.0/RPE=3), Recumbent Bike (METS=6.6/RPE=3) Frequency: 3 Duration (Minutes) 30 - 60 minutes total exercise a day. 15 - 20 work intervals in minutes. PRN rest intervals in minutes. Functional Capacity Goal Sustained Metabolic Equivalent of a task (MET) goal of 4.75-5.75 for 15-20 minutes. Intensity: 3-Moderate Progression (METS) Increase by: 0.5 METS every: 5 sessions TOLERATED Angina with ex: No Target Heart Rate REST +35-40 PER BETA ARCHIE THERAPY Resistance Training: Yes Weight (pounds): 4 Reps: 12-15 Hypertension: Yes Hypertension controlled with: Medication Resting 142/78 Peak Exercise BP 160/90 Medications Scheduled Aspirin (Aspir 81), 81 MG PO DAILY, (Reported) Hydralazine HCl (Hydralazine HCl), 10 MG PO TID, (Reported) Lisinopril (Lisinopril), 10 MG PO DAILY, (Reported) Magnesium Citrate (Magnesium Citrate), 1 CHRISTIAN PO ASDIRECTED Metoprolol Tartrate (Lopressor), 25 MG PO BID, (Reported) Warfarin Sod (Coumadin), 1 TAB PO DAILY, (Reported) Scheduled PRN Polyethylene Glycol 3350 (Miralax), 17 GM PO DAILY PRN for CONSTIPATION Current BP 132/76 Med Change: No Intervention Home exercise: Type (WALKING,JOGGING,HOME EXERCISE EQUIPMENT,JOIN LOCAL GYM), Frequency (3-5 DAYS PER WEEK), Duration (30-60 MINUTES) Education: Ex safety (PATIENT VERBALIZES UNDERSTANDING OF IMPORTANCE OF WARM UP/COOL DOWN, STAYING HYDRATED), Low NA diet (PATIENT VERBALIZES UNDERSTANDING THAT HE SHOULD AVOID SALT IN HIS DIET), RPE Scale (REVIEWED RPE SCALE USED TO RATE DIFFICULTY ON EACH PIECE OF EQUIPMENT), Equipment orientation (ORIENTED TO EACH PIECE OF EQUIPMENT USED), Understand BP (DISCUSSED IDEAL BP TO BE LESS THAN 130/80 AND COMPARED TO HIS B/P), Physical Active (PATIENT VERBALIZES UNDERSTANDING OF IMPORTANCE OF CONTINUED EXERCISE FOLLOWING CARDIAC REHAB PROGRAM) Education Goals Met: No (PROGRESSING TOWARD GOALS) Target Goals Individual exercise Rx (1) BP 140/90 or 130/80 if DM or CKD (1) Aerobic active 30+min 5 days per week (1) Nutrition Date: Oct 23, 2019 Assessment: Re-Assessment II Stages of change: Contemplate Med Change: No Diabetes Diabetes: No Monitor Blood Sugar at home: No Medication Change: No Weight Management Weight (lbs): 197.6 Special Diet: regular Alcohol: weekly Alcohol Type: beer Alcohol Amount: 1-2 Current Weight (pounds): 197.6 Intervention Print Line Operator Consult: No Nurse/patient discussion: Yes Dietary Goals TO MAKE HEART HEALTHY CHOICES, SMALLER PORTIONS Diet Class: Yes (WILL SEE BRIDGES AND BUILDINGS SUPERVISOR WHILE IN PROGRAM) Referral to Diabetes education: No Referral to lipid clinic: No Referral to weight mangement p: No Education Eating Healthy Education Goals Met: No (PROGRESSING TOWARD GOALS) Target goal LDL-C<100 if triglycerides are >200 Non-HDL-C should be <130 (1) LDL-C<70 for high risk patients (4) HbA1c<7% (1) BMI<25 Waist cir<40in M/<35in F (1) Education Date: Oct 23, 2019 Assessment: Re-Assessment II Learning Barriers: ready Stages of change: Contemplate Family Support: Yes Tobacco use: No Quit: >6 months Tobacco Use Smokeless tobacco: No Intervention Referral to smoking cessation: No Individual education and couns: No Tobacco Adjunct: No Education class schedule given: No Attended education classes: No Education: CAD (PATIENT STATES THAT HIGH CHOLESTEROL CLOGS ARTERIES CAUSING CAD), Risk factors (PATIENT STATES THAT BEING OVER WEIGHT, DIABETIC, AND HAVING ELEVATED CHOLESTEROL ARE RISK FACTORS FOR CAD), cardiac A&P (REVIEWED HANDOUTS FOR CARDIAC ANATOMY AND PHISIOLOGY), Angina S/S (REVIEWED S/S OF ANGINA SUCH CHEST PAIN, CHEST PRESSURE, SOB, NAUSEA AND VOMITING), Sexuality (PATIENT STATES NEEDS PERMISSION FROM MD PRIOR TO SEXUAL ACTIVITY) Education Goals Met: No (PROGRESSING TOWARD GOALS) Target Goals Complete cessation of tobacco use (1). Psychosocial Date: Oct 23, 2019 Assessment: Re-Assessment II Stages of change: Contemplate Intervention Physician Consult: No Physician Referral: No Med Change: No Stress Management Class: No Uses Stress Management Skills: Yes Education Education: Coping Techniques (REVIEWED WITH PATIENT SUCH TALKING WITH FRIENDS AND FAMILY, TAKING TIME FOR SELF), Relaxation Techniques (DISCUSSED EXERCISE, LISTENING TO MUSIC, READING) Education Goals Met: No (PROGRESSING TOWARD GOALS) Target Goal Assess presence or absence of depression using a valid screening tool (1). Maximize coping skills (2). Positive support system (2). Patient/Program Goal Preventative Medication: Yes Aspirin, Yes Beta blockade, Yes MARLENY Inhibitor, Yes Other (COUMADIN) Fall Risk Assess: Yes (NOT A FALL RISK) Provider Assessment Session Number: 8 Provider Assessment: Proceed with rehab Silver Norris RN Oct 23, 2019 17:32
[2019-10-25] MEDS ORDERED: WARF-20 PO (11:48)
[2019-10-25] MEDS ORDERED: ACET-683 PO (14:07)
[2019-10-25] MEDS ORDERED: METO1TAB87 PO (14:07)
[2019-10-27] MEDS ORDERED: PANT40TA3 PO ×2 (18:46→18:48)
[2019-10-27] MEDS ORDERED: IBUP200C25 PO (18:46)
[2019-10-27] MEDS ORDERED: COLC1TAB13 PO (18:46)
== END 2019-10-28 ==
LOC: M CR 10:45
PROVIDERS: ATTEND Internal Medicine Cardiovascular Disease
DX: Z95.3 Presence of xenogenic heart valve (principal); I35.0 Nonrheumatic aortic (valve) stenosis

== ENCOUNTER 2019-10-23 05:45 | Emergency (ER) | payer OTHER ==
[~2019-10-23] VITALS: Ht 185.4 cm; Wt 95.2 kg
[2019-10-23] MEDS ORDERED: ONDANSETRON 4MG/2ML VIAL (J2405) IV ONE (06:30)
[2019-10-23] MEDS ORDERED: NS 1,000 ML IV ONE (06:30)
[2019-10-23] MEDS ORDERED: MORPHINE 4 MG/ML 1ML VIAL/SYRINGE (J2270) IV PRN (06:30)
[2019-10-23 06:35] LABS: BASO % 0.2 % (0.0-1.0); EOS # 0.1 10^3/uL (0.0-0.5); EOS % 1.2 % (0.0-3.0); HEMATOCRIT 46.4 % (42.0-52.0); HEMOGLOBIN 15.1 g/dl (13.5-17.5); LYMPH # 1.9 10^3/uL (1.5-5.0); LYMPH % 19.8 % (24.0-44.0); MEAN CORPUSCULAR HGB CONC 32.5 g/dl (32.0-36.5); MEAN CORPUSCULAR VOLUME 82.9 fl (80.0-96.0); MONO % 9.8 % (0.0-5.0); NEUTROPHILS # 6.7 10^3/uL (1.5-8.5); NEUTROPHILS % 68.8 % (36.0-66.0); PLATELET COUNT, AUTOMATED 225 10^3/uL (150-450); WHITE BLOOD COUNT 9.8 10^3/uL (4.0-10.0)
[2019-10-23] MEDS ORDERED: ISOVUE-370 76% 100ML VIAL (Q9967) As Ordered ONE (06:35)
[2019-10-23 06:53] LABS: PARTIAL THROMBOPLASTIN TIME 35.1 SECONDS (25.0-38.4)
[2019-10-23 07:03] LABS: ALBUMIN 4.2 GM/DL (3.2-5.2); ALT/SGPT 42 U/L (12-78); BILIRUBIN,DIRECT 0.1 MG/DL (0.0-0.2); BILIRUBIN,TOTAL 0.3 MG/DL (0.2-1.0); CK-MB VALUE MASS < 1.0 NG/ML (<3.6); CPK CREATINE PHOSPHOKINASE 139 U/L (39-308); LIPASE 86 U/L (73-393); MB/CK RELATIVE INDEX 0.72 (< OR =4); TOTAL PROTEIN 7.2 GM/DL (6.4-8.2); TROPONIN I < 0.02 NG/ML (< 0.10)
[2019-10-23 07:05] LABS: INR 1.76; PROTHROMBIN TIME 20.3 SECONDS (11.8-14.0)
--- NOTE | 2019-10-23 07:17 | REPVR ---
PROCEDURE INFORMATION: Exam: CT Abdomen And Pelvis With Contrast Exam date and time: 10/23/2019 6:57 AM Age: 24 years old Clinical indication: Abdominal pain; Additional info: Recent open avr, left upper quad, left chest wall pain TECHNIQUE: Imaging protocol: Computed tomography of the abdomen and pelvis with intravenous contrast. Radiation optimization: All CT scans at this facility use at least one of these dose optimization techniques: automated exposure control; mA and/or kV adjustment per patient size (includes targeted exams where dose is matched to clinical indication); or iterative reconstruction. Contrast material: ISO 370; Contrast volume: 100 ml; Contrast route: IV; COMPARISON: CT ABD/PEL W/IV CONTRAST ONLY 07/20/2019 11:39 AM FINDINGS: Lungs: The visualized portions of the lung bases are normal. Heart: There is a small amount of pericardial fluid. Sternotomy wires and a prosthetic aortic valve are now seen. Liver: There are no focal liver lesions present. Gallbladder and bile ducts: The gallbladder is normal with no stones or biliary ductal dilation. Pancreas: The pancreas is normal with no ductal dilation. Spleen: The spleen is normal. Adrenals: The adrenal glands are normal. Kidneys and ureters: The kidneys are unremarkable. There are no ureteral stones or hydronephrosis. Stomach and bowel: The small bowel appears unremarkable. There is no dilation or thickening of the colon. There is formed stool throughout the rectosigmoid colon. Appendix: A normal appendix is identified. Intraperitoneal space: There is no evidence of free intraperitoneal or pelvic fluid. There is no free intraperitoneal air. Vasculature: No aortic aneurysm. Lymph nodes: No lymphadenopathy is seen. Bladder: The bladder is unremarkable. No stones identified. Reproductive: The prostate gland and seminal vesicles are normal. Bones/joints: No suspicious osseous lesions. No acute fractures or dislocations. Soft tissues: Unremarkable. IMPRESSION: 1. No evidence of an acute abnormality in the abdomen and pelvis. 2. No bowel obstruction. Formed stool throughout the sigmoid colon. Correlate with any symptoms of constipation. 3. Evidence of an interval aortic valve replacement. Electronically signed by: Maria Ines Heck On 10/23/2019 07:17:16 AM
--- NOTE | 2019-10-23 07:29 | REPVR ---
PROCEDURE INFORMATION: Exam: CT Angiography Chest With Contrast Exam date and time: 10/23/2019 6:57 AM Age: 24 years old Clinical indication: Chest wall pain; Additional info: Recent open avr, left upper quad, left chest wall pain TECHNIQUE: Imaging protocol: Computed tomographic angiography of the chest with intravenous contrast. 3D rendering: MIP and/or 3D reconstructed images were created by the technologist. Radiation optimization: All CT scans at this facility use at least one of these dose optimization techniques: automated exposure control; mA and/or kV adjustment per patient size (includes targeted exams where dose is matched to clinical indication); or iterative reconstruction. Contrast material: ISOVUE 370; Contrast volume: 100 ml; Contrast route: IV; COMPARISON: CT ANGIO CHEST 07/24/2019 5:48 PM FINDINGS: Pulmonary arteries: The pulmonary arteries are not enlarged. No filling defects are seen to indicate an acute pulmonary embolism. Aorta: The contrast bolus was not timed for optimal assessment of the thoracic aorta, and artifact from dense contrast in the SVC limits assessment of the ascending aorta, but there is no gross sign of thoracic aortic aneurysm or dissection. Lungs: There is a calcified granuloma in the right upper lobe. There is minimal peripheral density posteriorly in the bilateral lung bases, nonspecific but probably representing subsegmental atelectasis. Pleural space: There is a trace of pleural fluid bilaterally. There is no pneumothorax. Heart: There is a small pericardial effusion. There is a new prosthetic aortic valve. Lymph nodes: No lymphadenopathy is seen. There is a small right cardiophrenic lymph node measuring 7 mm in short axis which was not seen previously. Bones/joints: There is evidence of a sternotomy since the prior exam without osseous union of the sternum and manubrium. No suspicious osseous lesions. No acute fractures or dislocations. Soft tissues: There is mild infiltration of the subcutaneous tissues in the midline, consistent with a recent previous midline incision, as given in the clinical history. No soft tissue fluid collections are identified. IMPRESSION: 1. Evidence of an median sternotomy and aortic valve replacement since the prior exam. 2. Small pericardial effusion. 3. No evidence of acute pulmonary embolism. 4. Trace of pleural fluid bilaterally and minimal peripheral density posteriorly in the lung bases, likely subsegmental atelectasis. Electronically signed by: Maria Ines Heck On 10/23/2019 07:29:04 AM
[2019-10-23] MEDS ORDERED: MAGN1.743 PO ×2 (08:58→09:29)
[2019-10-23] MEDS ORDERED: MIRA3350 PO ×2 (08:58→09:29)
[2019-10-23 09:14] VITALS: BP 139/70
--- NOTE | 2019-10-23 10:48 | ED PDOC ---
Post-Departure Follow-Up ft rene ryan and dr campo faxed formal report of cta chest for fu Rosa Maria Scott MD Oct 23, 2019 10:48
--- NOTE | 2019-10-23 11:15 | ECGEPIP ---
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
== END 2019-10-23 09:28 | disposition home or self-care (01) ==
LOC: M ED 05:45
DX: R10.9 Unspecified abdominal pain (principal); R79.1 Abnormal coagulation profile; Z79.899 Other long term (current) drug therapy; Z79.82 Long term (current) use of aspirin; Z79.01 Long term (current) use of anticoagulants
CPT/HCPCS: 71275; 74177; 80047; 80076; 82550; 82553; 83690; 84484; 85025; 85610; 85730; 93005; 93041; 96361; 96374; 96375; 99284; J2270; J2405; Q9967

== ENCOUNTER 2019-10-25 11:07 | Inpatient (IN) | payer OTHER ==
[~2019-10-25] VITALS: Ht 185.4 cm; Wt 96.2 kg
[~2019-10-25 11:07] MED LIST changes: +MAGN1.743 PO; +MIRA3350 PO
[2019-10-25] MEDS ORDERED: WARF-20 PO (11:48)
[2019-10-25] MEDS ORDERED: ASPIRIN 81 MG CHEW TABLET PO ONE (12:15)
[2019-10-25 12:28] LABS: BASO % 0.1 % (0.0-1.0); EOS % 0.2 % (0.0-3.0); HEMATOCRIT 44.8 % (42.0-52.0); HEMOGLOBIN 14.6 g/dl (13.5-17.5); LYMPH # 1.6 10^3/uL (1.5-5.0); MEAN CORPUSCULAR HEMOGLOBIN 27.3 pg (27.0-33.0); MEAN CORPUSCULAR HGB CONC 32.6 g/dl (32.0-36.5); MEAN CORPUSCULAR VOLUME 83.9 fl (80.0-96.0); NEUTROPHILS # 8.1 10^3/uL (1.5-8.5); NEUTROPHILS % 75.2 % (36.0-66.0); PLATELET COUNT, AUTOMATED 236 10^3/uL (150-450); RED BLOOD COUNT 5.34 10^6/uL (4.30-6.10); WHITE BLOOD COUNT 10.7 10^3/uL (4.0-10.0)
[2019-10-25 12:41] LABS: INR 1.9; PROTHROMBIN TIME 21.5 SECONDS (11.8-14.0)
[2019-10-25 12:54] LABS: ALBUMIN 3.9 GM/DL (3.2-5.2); ALT/SGPT 25 U/L (12-78); BILIRUBIN,DIRECT 0.2 MG/DL (0.0-0.2); BILIRUBIN,TOTAL 0.7 MG/DL (0.2-1.0); BLOOD UREA NITROGEN 11 MG/DL (7-18); CALCIUM LEVEL 9.4 MG/DL (8.5-10.1); CARBON DIOXIDE LEVEL 28 MEQ/L (21-32); CHLORIDE LEVEL 102 MEQ/L (98-107); CK-MB VALUE MASS < 1.0 NG/ML (<3.6); CPK CREATINE PHOSPHOKINASE 85 U/L (39-308); CREATININE FOR GFR 0.89 MG/DL (0.70-1.30); GLOMERULAR FILTRATION RATE > 60.0 (>60); GLUCOSE, FASTING 99 MG/DL (70-100); LIPASE 39 U/L (73-393); MB/CK RELATIVE INDEX 1.18 (< OR =4); NT-PRO BNP 197 PG/ML (<125); POTASSIUM SERUM 3.8 MEQ/L (3.5-5.1); SODIUM LEVEL 137 MEQ/L (136-145); TOTAL PROTEIN 7.1 GM/DL (6.4-8.2); TROPONIN I < 0.02 NG/ML (< 0.10)
--- NOTE | 2019-10-25 12:57 | REP ---
PA and lateral chest: Comparison is 10/24/2019. The lung luna are clear. Cardiac size is normal. The jason, mediastinum, skeletal structures are unremarkable. There are sternotomy wires and cardiac valve replacement. This is unchanged. Impression: No acute cardiopulmonary findings. Cardiac valve replacement. Electronically Signed by Martin Abdi MD 10/25/2019 12:49 P
[2019-10-25] MEDS ORDERED: MORPHINE 4 MG/ML 1ML VIAL/SYRINGE (J2270) IV ONE (13:00)
[2019-10-25] MEDS ORDERED: ACET-683 PO (14:07)
[2019-10-25] MEDS ORDERED: METO1TAB87 PO (14:07)
[2019-10-25] MEDS ORDERED: VANCOMYCIN HCL 1,500 MG, VIAL MATE ADAPTER 1 EACH in D5W 250 ML IV SCH (14:15)
[2019-10-25] MEDS ORDERED: NS IV SCH (14:15)
[2019-10-25] MEDS ORDERED: GENTAMICIN 100 MG in D5W 50 ML IV SCH (14:15)
[2019-10-25] MEDS ORDERED: RIFAMPIN IV SCH (14:15)
--- NOTE | 2019-10-25 14:44 | HPEPDOC ---
[facility] Medical History & Physical Date of Admission Oct 25, 2019 Date of Service: Oct 25, 2019 Attending Physician: EVARISTO PATEL MD History and Physical CHIEF COMPLAINT: Viral syndrome HISTORY OF PRESENT ILLNESS: 24-year-old male with past medical history of endocarditis status post mechanical aortic valve replacement in July 2019 and hypertension, presents from home with feeling feverish, chills, sweats, myalgias, arthralgias, and pleuritic chest pain. Patient's significant other has sore throat; patient reports similar symptoms to his previous episode of endocarditis. Patient contacted his water pollution scientist, Dr. Flannery advised him to come to the hospital for further evaluation. Patient is comfortably laying in bed, no additional complaints, afebrile, in the ED. He denies any shortness of breath, nausea, vomiting, abdominal pain or diarrhea. 10 point review of system is negative except for above PAST MEDICAL HISTORY: 1. Endocarditis. 2. Hypertension. PAST SURGICAL HISTORY: 1. Mechanical aortic valve replacement. SOCIAL HISTORY: Never smoker. Denies alcohol use. Denies drug use FAMILY HISTORY: No family history of cancer or heart disease ALLERGIES: Please see below. HOME MEDICATIONS: Please see below. PHYSICAL EXAMINATION: VITAL SIGNS: Please see below. GENERAL: No distress HEENT: Normocephalic, atraumatic, moist mucous membranes NECK: Supple CARDIOVASCULAR EXAMINATION: S1, S2, no murmurs RESPIRATORY EXAMINATION: Clear to auscultation, no wheezing ABDOMINAL EXAMINATION: Soft, nontender, nondistended, positive bowel sounds EXTREMITIES: Range of motion intact SKIN: No rash NEUROLOGICAL EXAMINATION: Alert and oriented 3, no focal deficits PSYCHIATRIC EXAMINATION: Calm and cooperative LABORATORY DATA: See below. IMAGING: Chest x-ray without acute pathology MICROBIOLOGY: Please see below. ASSESSMENT: 24-year-old male with past medical history of endocarditis status post mechanical aortic valve replacement and hypertension presents with symptoms concerning for systemic infection. PLAN: 1. Viral syndrome. Symptoms and history concerning for viral infection, reports similar symptoms prior to previous episode of endocarditis, TTE has been ordered by emergency department, blood cultures and respiratory viral panel ordered, empiric vancomycin, rifampin and gentamicin given mechanical aortic valve. Patient will be evaluated by Dr. Milan 2. Hypertension Continue lisinopril, metoprolol and hydralazine DVT prophylaxis: On Coumadin. GI prophylaxis: Not needed Vital Signs Vital Signs Date Time Temp Pulse Resp B/P (MAP) Pulse Ox O2 Delivery O2 Flow Rate FiO2 10/25/19 13:25 17 99 Room Air 10/25/19 12:00 99.2 101 121/56 (77) Laboratory Data Labs 24H Laboratory Tests 2 10/25/19 11:33: Immature Granulocyte % (Auto) 0.5, Neutrophils (%) (Auto) 75.2H, Lymphocytes (%) (Auto) 15.0L, Monocytes (%) (Auto) 9.0H, Eosinophils (%) (Auto) 0.2, Basophils (%) (Auto) 0.1, Neutrophils # (Auto) 8.1, Lymphocytes # (Auto) 1.6, Monocytes # (Auto) 1.0H, Eosinophils # (Auto) 0.0, Basophils # (Auto) 0.0, Nucleated Red Blood Cells % (auto) 0.0, Prothrombin Time 21.5H, Prothromb Time International Ratio 1.90, Anion Gap 7L, Glomerular Filtration Rate > 60.0, Calcium Level 9.4, Total Bilirubin 0.7#, Direct Bilirubin 0.2, Aspartate Amino Transf (AST/SGOT) 15, Alanine Aminotransferase (ALT/SGPT) 25, Alkaline Phosphatase 77, Total Creatine Kinase 85, Creatine Kinase MB < 1.0, Creatine Kinase MB Relative Index 1.18, Troponin I < 0.02, BW-Qzi-V-Type Natriuretic Peptide 197H, Total Protein 7.1, Albumin 3.9, Albumin/Globulin Ratio 1.22, Lipase 39L 10/25/19 14:25: CBC/BMP Laboratory Tests 10/25/19 11:33 Microbiology Microbiology 10/25/19 Blood Culture, Received Pending Home Medications Scheduled Aspirin (Aspir 81) 81 Mg Tablet.dr, 81 MG PO DAILY Hydralazine HCl (Hydralazine HCl) 10 Mg Tablet, 10 MG PO BID Lisinopril (Lisinopril) 10 Mg Tablet, 10 MG PO DAILY Metoprolol Tartrate (Metoprolol Tartrate) 25 Mg Tablet, 25 MG PO BID Warfarin Sodium (Warfarin Sodium) 4 Mg Tablet, 8 MG PO QPM Scheduled PRN Acetaminophen (Acetaminophen) 500 Mg Tablet, 1,000 MG PO TID PRN for PAIN Allergies Coded Allergies: No Known Allergies (Unverified , 07/20/19) A-FIB/CHADSVASC A-FIB History Current/History of A-Fib/PAF?: No EVARISTO PATEL MD Oct 25, 2019 14:44
[2019-10-25 14:45] VITALS: BP 136/74
[2019-10-25] MEDS ORDERED: VANCOMYCIN HCL 1,000 MG, VIAL MATE ADAPTER 1 EACH in D5W 250 ML IV ONE (15:00)
[2019-10-25 15:01] LABS: INFLUENZA A AMPLIFICATION NEGATIVE (NEGATIVE); INFLUENZA B AMPLIFICATION NEGATIVE (NEGATIVE)
[2019-10-25] MEDS ORDERED: VANCOMYCIN HCL 1,000 MG, VIAL MATE ADAPTER 1 EACH in D5W 250 ML IV SCH (15:21)
[2019-10-25 16:30] VITALS: BP 132/81
[2019-10-25] MEDS: VANCOMYCIN HCL 1,000 MG, VIAL MATE ADAPTER 1 EACH in D5W 250 ML IV SCH ×2 (16:55→18:53)
[2019-10-25] MEDS ORDERED: GENTAMICIN 100 MG in IV 1 EA IV SCH (18:00)
[2019-10-25] MEDS: ACETAMINOPHEN 500 MG TAB PO PRN (19:04)
[2019-10-25] MEDS: METOPROLOL TART 25 MG TABLET PO SCH (20:43)
[2019-10-25] MEDS: WARFARIN SOD 4 MG TAB PO SCH (20:44)
[2019-10-25] MEDS: **hydrALAZINE** 10 MG TAB PO SCH (20:44)
[2019-10-25 22:00] VITALS: BP 127/67
[2019-10-25] MEDS: GENTAMICIN 100 MG in IV 1 EA IV SCH (22:08)
[2019-10-25] MEDS: VANCOMYCIN HCL 750 MG, VIAL MATE ADAPTER 1 EACH in D5W 250 ML IV SCH (23:04)
[2019-10-26] MEDS: VANCOMYCIN HCL 500 MG in D5W MINI-BAG PLUS 100 ML IV SCH ×2 (00:17→08:41)
--- NOTE | 2019-10-26 05:43 | ECGEPIP ---
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
[2019-10-26 06:00] VITALS: BP 124/71
[2019-10-26 06:06] LABS: HEMATOCRIT 41.4 % (42.0-52.0); HEMOGLOBIN 13.2 g/dl (13.5-17.5); MEAN CORPUSCULAR HEMOGLOBIN 26.7 pg (27.0-33.0); MEAN CORPUSCULAR HGB CONC 31.9 g/dl (32.0-36.5); MEAN CORPUSCULAR VOLUME 83.8 fl (80.0-96.0); PLATELET COUNT, AUTOMATED 227 10^3/uL (150-450); RED BLOOD COUNT 4.94 10^6/uL (4.30-6.10); WHITE BLOOD COUNT 9.1 10^3/uL (4.0-10.0)
[2019-10-26 06:17] LABS: INR 1.85; PROTHROMBIN TIME 21.1 SECONDS (11.8-14.0)
[2019-10-26] MEDS: GENTAMICIN 100 MG in IV 1 EA IV SCH ×3 (06:21→22:15)
[2019-10-26] MEDS: ACETAMINOPHEN 500 MG TAB PO PRN ×2 (06:22→19:38)
[2019-10-26 06:27] LABS: ALBUMIN 3.3 GM/DL (3.2-5.2); ALT/SGPT 24 U/L (12-78); BILIRUBIN,TOTAL 0.7 MG/DL (0.2-1.0); BLOOD UREA NITROGEN 13 MG/DL (7-18); CALCIUM LEVEL 8.5 MG/DL (8.5-10.1); CARBON DIOXIDE LEVEL 29 MEQ/L (21-32); CHLORIDE LEVEL 105 MEQ/L (98-107); CREATININE FOR GFR 0.87 MG/DL (0.70-1.30); GLOMERULAR FILTRATION RATE > 60.0 (>60); GLUCOSE, FASTING 102 MG/DL (70-100); MAGNESIUM LEVEL 2.1 MG/DL (1.8-2.4); POTASSIUM SERUM 4.1 MEQ/L (3.5-5.1); SODIUM LEVEL 139 MEQ/L (136-145)
--- NOTE | 2019-10-26 06:46 | ECHO ---
DATE OF PROCEDURE: 10/25/2019 DATE OF : 1995 AGE: 24 REFERRING PROVIDER: PATIENT LOCATION: Room 4226 REASON FOR THE STUDY: Chest pain. 2-D MEASUREMENTS: IVS: 1.1 cm LV: 3.6 cm LVPW: 1.1 cm LA: 3.8 cm IVC: 2.7 cm DOPPLER MEASUREMENTS: Peak velocity across the aortic valve: 3.4 m/s Peak velocity across the LVOT: 1.1 m/s Peak gradient across the aortic valve: 45 mmHg Mean gradient across the aortic valve: 26 mmHg Mitral E: 0.6 Mitral: 0.5 Ratio: Greater than 1.0 Maximum tricuspid valve velocity: 2.5 m/s COMMENTS: 1. Normal left ventricular size, wall thickness, and normal global left ventricular systolic function. The estimated left ventricular systolic ejection fraction is 60-65%. 2. Normal left atrium. Normal right atrium and right ventricle. 3. The atrial septum appeared to be normal without evidence of defect or shunt. 4. Normal aortic root. Subjectively, appeared to be normal. 5. A small pericardial effusion was noted, no evidence of cardiac tamponade. Pleural effusion also noted. 6. Mechanical valve noted in the aortic valve position, leaflet excursion was not well visualized. However, there was an echogenic structure, elongated, noted on the ventricular surface of the aortic valve from unclear etiology that may represent vegetation. 7. The mitral valve, tricuspid valve, and pulmonic valve appeared normal. The proximal pulmonary artery branches were not well visualized. 8. The inferior vena cava was mildly enlarged, central venous pressure might be elevated. DOPPLER: It detects trace aortic regurgitation, trace mitral regurgitation, trace tricuspid regurgitation. The calculated pulmonary artery systolic pressure is about 30 mmHg. Abnormal relaxation pattern was noted across the mitral valve annulus consistent with features of grade 2 left ventricular diastolic dysfunction. IMPRESSION: 1. Normal global left ventricular systolic function. There are some features of grade 2 left ventricular diastolic dysfunction. 2. Mechanical prosthetic aortic valve with trace aortic regurgitation and mild to moderate stenosis. 3. Trace mitral regurgitation. 4. Trace tricuspid regurgitation. 5. There are some features of elevated central venous pressure, the inferior vena cava/IVC was mildly enlarged. 6. A small pericardial effusion was noted. 7. Echogenic structure noted on the ventricular surface of the aortic valve may represent vegetation and will need to be evaluated/assessed with a transesophageal echocardiogram. MTDD
[2019-10-26] MEDS: VANCOMYCIN HCL 750 MG, VIAL MATE ADAPTER 1 EACH in D5W 250 ML IV SCH ×4 (07:40→22:59)
[2019-10-26] MEDS: **hydrALAZINE** 10 MG TAB PO SCH ×2 (08:42→21:25)
[2019-10-26] MEDS: ASPIRIN 81 MG ENTERIC TAB PO SCH (08:42)
[2019-10-26] MEDS: METOPROLOL TART 25 MG TABLET PO SCH ×2 (08:42→21:26)
[2019-10-26] MEDS: lisinopriL 10 MG TAB PO SCH (08:42)
--- NOTE | 2019-10-26 11:58 | REP ---
CT of the chest without IV contrast for pleuritic chest pain. The patient had cardiac aortic valve replacement 2 months ago. Comparison is the chest CT with IV contrast dated 10/23/2019. On the study today there are bilateral pleural effusions as an interval change. In addition there is an infiltrate in the lower lobe of the left lung as an interval change. No pleural thickening is identified. No rib fractures or other rib abnormalities are identified. No thoracic vertebral body compression deformities are identified. There are sternotomy wires. This is unchanged. There is a prosthetic aortic valve. This is unchanged. There are no lung masses or nodules. There is no mediastinal lymph node enlargement. The study is insensitive for hilar lymph node enlargement in the absence of IV contrast. There is no axillary lymph node enlargement. The unenhanced thoracic aorta is unremarkable. Cardiac size is upper normal. In the upper abdomen the visualized areas of the unenhanced liver, pancreas and spleen are unremarkable. The adrenals and renal upper poles are unremarkable. Impression: Bilateral pleural effusions as an interval change. Left lower lobe infiltrate as an interval change. Sternotomy wires and cardiac valve replacement, unchanged. Electronically Signed by Martin Abdi MD 10/26/2019 11:50 A
[2019-10-26 14:00] VITALS: BP_SYST 128; BP_SYST 146; BP_DIAS 73; BP_DIAS 79
--- NOTE | 2019-10-26 14:46 | PHACANCOPD ---
PHARMACY VANCOMYCIN DOSING Pt Demographics Demographics Patient Age:24 , Weight:96.200 , Gender: male Adjusted Body Weight Date: 10/26/19, Adjusted Body Weight: Kg Vancomycin Vancomycin Target Ranges: 15-20 mcg/ml Vancomycin Load Y/N: Yes Load Dose Date Time Vancomycin Load Dose: 2 GM Date: 10/25/19 Time: 1500 Vancomycin Dose Date: 10/26/19. Current Vancomycin Dose: [1500 MG IV Q8H @15] Date: 10/25/19. Current Vancomycin Dose: [1250 MG IV Q8H @23] Intermittent Dosing?: No Labs Micro Microbiology 10/25/19 Blood Culture, Received Pending 10/25/19 Respiratory Virus Panel (PCR) (JODIE) - Final, Complete 10/25/19 Blood Culture - Preliminary, Resulted No growth after 24 hours . All specim... 10/25/19 Blood Culture - Preliminary, Resulted No growth after 24 hours . All specim... Creatinine Clearance Date:10/26/19. Creatinine Clearance: . Assessment and Plan Maintaining Current Dose?: No Reason for dose change: Trough too low Pharmacist Note Pharmacist Note Date: 10/26/19. Pharmacist note: Trough resulted @ 10.4 mg/ml drawn 2 hours early, data extrapolation would indicate a trough of 8.1 We'll increase dose to 1500 mg IV q8h. Pharmacy will continue to monitor and make adjustments as needed. Date: 10/25/19. Pharmacist note: Pharmacy consulted for Vancomycin dosing for empiric treatment of possible endocarditis. Patient underwent aortic valve replacement @ [facility] this past June for treatment of Endocarditis. Patient complaining of similar symptoms. Echo shows possible vegetation. We'll load him with 2 grams and follow with 1250 mg IV q8h. Pharmacy will continue to monitor and make adjustments as needed. A[facility] Oct 26, 2019 14:46
--- NOTE | 2019-10-26 14:48 | IPNPDOC ---
Date Seen The patient was seen on 10/26/19. Progress Note SUBJECTIVE: 24-year-old male with past medical history of endocarditis status post mechanical aortic valve replacement in July 2019 and hypertension, presents from home with feeling feverish, chills, sweats, myalgias, arthralgias, and pleuritic chest pain. Patient's significant other has sore throat; patient reports similar symptoms to his previous episode of endocarditis. Patient contacted his shoe polisher, Dr. Flannery advised him to come to the hospital for further evaluation. Patient is comfortably laying in bed, no additional complaints, afebrile, in the ED. He denies any shortness of breath, nausea, vomiting, abdominal pain or diarrhea. 10/26/19 Patient seen in the morning, comfortable in chair, continues to have pleuritic chest pain, no other complaints. TTE shows possible regurgitation over mechanical aortic valve. 10 point review of system is negative except for above PHYSICAL EXAMINATION: VITAL SIGNS: Please see below. GENERAL: No distress HEENT: Normocephalic, atraumatic, moist mucous membranes NECK: Supple CARDIOVASCULAR EXAMINATION: S1, S2, mechanical click appreciated, no murmurs RESPIRATORY EXAMINATION: Clear to auscultation, no wheezing ABDOMINAL EXAMINATION: Soft, nontender, nondistended, positive bowel sounds EXTREMITIES: Range of motion intact SKIN: No rash NEUROLOGICAL EXAMINATION: Alert and oriented 3, no focal deficits PSYCHIATRIC EXAMINATION: Calm and cooperative LABORATORY DATA: See below. IMAGING: Chest x-ray without acute pathology MICROBIOLOGY: Please see below. ASSESSMENT: 24-year-old male with past medical history of endocarditis status post mechanical aortic valve replacement and hypertension presents with symptoms concerning for systemic infection. PLAN: 1. Possible endocarditis TTE showing possible vegetation over aortic valve, cardiology consulted for MENDEZ, blood cultures negative to date, continue empiric vancomycin, rifampin and gentamicin, infectious disease consulted. 2. Hypertension Continue lisinopril, metoprolol and hydralazine 3. Mechanical aortic valve. INR subtherapeutic, give additional dose of Coumadin today. DVT prophylaxis: On Coumadin. GI prophylaxis: Not needed VS, I&O, 24H, Fishbone Vital Signs/I&O Vital Signs Date Time Temp Pulse Resp B/P (MAP) Pulse Ox O2 Delivery O2 Flow Rate FiO2 10/26/19 08:42 93 10/26/19 08:42 132/81 10/26/19 06:00 98.9 18 98 Room Air I&O- Last 24 Hours up to 6 AM 10/26/19 06:00 Intake Total 3380 ml Output Total 1400 ml Balance 1980 ml Laboratory Data 24H LABS Laboratory Tests 2 10/25/19 15:40: 10/26/19 05:32: Nucleated Red Blood Cells % (auto) 0.0, Prothrombin Time 21.1H, Prothromb Time International Ratio 1.85, Anion Gap 5L, Glomerular Filtration Rate > 60.0, Calcium Level 8.5, Magnesium Level 2.1, Total Bilirubin 0.7, Aspartate Amino Transf (AST/SGOT) 12, Alanine Aminotransferase (ALT/SGPT) 24, Alkaline Phosphatase 74, Total Protein 7.0, Albumin 3.3, Albumin/Globulin Ratio 0.89L 10/26/19 13:13: Erythrocyte Sedimentation Rate 35H, C-Reactive Protein, Quantitative 12.20H, Gentamicin Level Trough 0.3, Vancomycin Level Trough 10.4 CBC/BMP Laboratory Tests 10/26/19 05:32 Microbiology Microbiology 10/25/19 Blood Culture, Received Pending 10/25/19 Respiratory Virus Panel (PCR) (JODIE) - Final, Complete 10/25/19 Blood Culture - Preliminary, Resulted No growth after 24 hours . All specim... 10/25/19 Blood Culture - Preliminary, Resulted No growth after 24 hours . All specim... EVARISTO PATEL MD Oct 26, 2019 14:48
[2019-10-26] MEDS ORDERED: WARFARIN SOD 4 MG TAB PO ONE (17:00)
[2019-10-26] MEDS: PANTOPRAZOLE 40MG TAB (PROTONIX) PO SCH (21:24)
[2019-10-26] MEDS: IBUPROFEN 600 MG TAB PO SCH (21:25)
[2019-10-26] MEDS: WARFARIN SOD 4 MG TAB PO SCH (21:26)
[2019-10-26] MEDS: COLCHICINE 0.6 MG TAB PO SCH (21:26)
[2019-10-26 22:00] VITALS: BP 153/91
--- NOTE | 2019-10-26 22:29 | CR ---
DATE OF CONSULTATION: 10/26/2019 HISTORY OF THE PRESENT ILLNESS: Navjot Bryant is a 24-year-old male, active , with a history of recent aortic valve replacement secondary to endocarditis, who presents with several days of subjective fever, chills, night sweats, myalgias, and pleuritic chest pain. He was recently hospitalized on 07/24/2019, found to have positive blood cultures growing Streptococcus oralis and transesophageal echocardiogram (MENDEZ) concerning for endocarditis. He was transferred to [facility] and subsequently underwent open aortic valve replacement with mechanical valve and 4 weeks of antibiotic therapy. He was discharged home from [facility] on 08/22/2019 and reportedly has been feeling well since then. On this presentation, he reports he has some of the same pain that he did right after his surgery in [place]. He states that he has chest pain worse along his scar of his surgery and it somewhat gets better when he leans forward and is worse when he lays on his back. He called his music manager, Dr. Milan, who encouraged him to report to the emergency department (ED) for evaluation. On this hospitalization thus far, he has been started on empiric gentamicin and vancomycin, as well as rifampin, and infectious disease was consulted for antibiotic management. PAST MEDICAL HISTORY: 1. Endocarditis. 2. Long-standing hypertension. PAST SURGICAL HISTORY: Mechanical aortic valve replacement June 2019. SOCIAL HISTORY: Never smoker. Denies alcohol use. Denies drug use. FAMILY HISTORY: No family history of cancer or heart disease. PHYSICAL EXAMINATION: Vital Signs: At this time, temperature of 99.3, pulse 91, respiratory rate of 20, blood pressure of 128/79, pulse oximetry is 98% on room air. The patient is seen seated upright in bed. He is calm, cooperative, in no acute distress. HEENT: His head is normocephalic, atraumatic. His pupils are equally round and reactive to light. His extraocular movements are intact. His mucous membranes are moist. Neck: Supple with no thyromegaly, no lymphadenopathy. Chest: He has even chest rise. Cardiovascular Exam: He is somewhat tachycardic but normal S1, normal S2 with no obvious murmurs, rubs, or gallops. Very prominent second heart sound is noted from aortic valve replacement. Lung Exam: He has somewhat decreased breath sounds at the bases bilaterally with possibly increased e to a egophony; otherwise clear to auscultation bilaterally with no adventitious breath sounds appreciated. Abdomen: Soft and nontender to palpation with positive bowel sounds. No masses, no organomegaly. Extremities: No clubbing, cyanosis, or edema. Neurologic: Cranial nerves II-XII are intact with no focal deficits. Psychiatric: He is awake, alert, and oriented times three with normal mood and normal affect. Skin: He has no new rashes. LABORATORY: His CBC shows a white blood cell count of 9.7, hemoglobin 13.2, hematocrit 41.4, platelet count of 227. He has an erythrocyte sedimentation rate (ESR) rate of 35. His chemistries demonstrate a sodium of 139, potassium of 4.1, carbon dioxide of 29, BUN of 13, and creatinine of 0.87. His magnesium is 2.1. Liver enzymes are within normal limits. His CRP is elevated at 12.2 and a procalcitonin is currently pending. His INR has been somewhat low at 1.9 and 1.85 on this hospitalization. His urine was negative. Influenza was negative. On microbiology, he had a negative respiratory viral panel (RVP). He has now had three blood cultures drawn; all three are negative after 24 hours but are still pending final read. He underwent a CT of the chest with the findings of bilateral pleural effusions, left lower lobe infiltrate, and sternotomy wires and cardiac valve replacement. He also had a repeat echocardiogram, which demonstrates a normal global left ventricular systolic function. There are some features of grade 2 left ventricular diastolic dysfunction. Small pericardial effusion is noted and echogenic structure noted on the ventricular surface of the aortic valve. May represent vegetation and will need to be evaluated with a MENDEZ. The patient also had an EKG done, which was ready by myself. It demonstrated sinus tachycardia with very poor R wave progression and a possible incomplete right bundle branch block with no T wave abnormalities, no ST elevations noted. ASSESSMENT: This is a 24-year-old male with a recent history of Streptococcus oralis endocarditis, recently status post aortic valve replacement and 4 weeks of antibiotic therapy with ceftriaxone, who presents with flu-like symptoms, most concerning for possibility of post-pericardectomy syndrome versus new endocarditis on prosthetic valve. PLAN: We have stopped the patient's rifampin. 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 He will be given empiric treatment for post-pericardectomy syndrome with colchicine 0.6 mg twice a day and for pericarditis with ibuprofen, and once the transesophageal echocardiogram can be done, he can be stopped on vancomycin and gentamicin and can be sent home with followup with his music manager. OSIEL
[2019-10-27] MEDS: VANCOMYCIN HCL 750 MG, VIAL MATE ADAPTER 1 EACH in D5W 250 ML IV SCH ×4 (00:13→17:56)
[2019-10-27] MEDS: IBUPROFEN 600 MG TAB PO SCH ×2 (05:50→14:00)
[2019-10-27] MEDS: GENTAMICIN 100 MG in IV 1 EA IV SCH ×2 (05:50→15:08)
[2019-10-27 06:00] VITALS: BP 105/65
[2019-10-27 07:23] LABS: HEMATOCRIT 41.1 % (42.0-52.0); HEMOGLOBIN 13.2 g/dl (13.5-17.5); MEAN CORPUSCULAR HEMOGLOBIN 27.1 pg (27.0-33.0); MEAN CORPUSCULAR HGB CONC 32.1 g/dl (32.0-36.5); MEAN CORPUSCULAR VOLUME 84.4 fl (80.0-96.0); PLATELET COUNT, AUTOMATED 255 10^3/uL (150-450); RED BLOOD COUNT 4.87 10^6/uL (4.30-6.10); WHITE BLOOD COUNT 6.5 10^3/uL (4.0-10.0)
--- NOTE | 2019-10-27 07:24 | IPN ---
DATE OF SERVICE: 10/26/2019 Mr. Navjot Bryant was seen this evening, he was laying supine in bed in no acute distress at rest and his was at bedside. He stated he feels better and does not think he has been having any fever. He denies any chills. He has been having less muscle pain and joint pain. He does complain of some left shoulder pain. He continues to have chest pain, particularly in supine position. He feels more comfortable when he is sitting up. The case was discussed earlier today with his hospitalist and he was told to start him on treatment for pericarditis pending transesophageal echocardiogram and blood culture. He also was seen earlier today by infectious disease (ID), Dr. Mehta. There is no report of bleeding. PHYSICAL EXAMINATION: The patient is alert and oriented, very pleasant, in no acute distress at rest. His vital signs when I saw him revealed a blood pressure of 128/79 with a pulse of 91, respirations 20, and his maximum temperature was 99.3 degrees Fahrenheit with an oxygen saturation of 98% on room air. He had a positive fluid balance of 2.5 liters for . Examination of the Head: Atraumatic. Neck: Neck is supple and no jugular venous distention (JVD) appreciated. Lungs did not reveal any wheezing or crackles. The heart examination revealed irregular heart sounds without gallops, mildly tachycardiac. The PMI is not displaced. There is no rub. There is a systolic murmur grade 2/6 over the pericardium, but louder at the base of the base. Abdomen is unremarkable. Extremities reveal no pedal edema. Next neurological examination grossly is negative for focal deficit. LABORATORY DATA: CBC done today revealed a WBC of 9.1, hemoglobin 13.2, hematocrit 41.4 and platelet 227,000. Next, BMP revealed a sodium of 139, potassium 4.1, chloride 105, CO2 29, BUN 13, creatinine 0.87, GFR more than 60, fasting glucose 102 and calcium 8.5. Serum magnesium is 2.1. Total bilirubin of 0.7 AST 12, ALT 24, alkaline phosphatase 74, total protein 7.0, and albumin 3.3. Serum C-reactive protein was 12.2. PT today was 21.1 with an INR of 1.85. A chest CT was done and it revealed bilateral pleural effusion, left lower lobe infiltrate. 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 He has been doing well and then presented yesterday to the office with febrile symptoms associated with chills, muscle pain and joint pain. He also had been having pleuritic chest pain that seems to be consistent with pericarditis. His EKG revealed more ST elevation when compared with prior tracings and his echocardiogram revealed a normal global left ventricular systolic function, small pericardial effusion and there was a peak velocity of 24 meters per second across the aortic valve. He was also an elongated echogenic structure noted on the left ventricular surface of the aortic valve that could represent vegetation. The patient currently is on antibiotics and is being treated for presumed pericarditis. He will need a transesophageal echocardiogram and Dr. Purcell was informed earlier today by Naren. He will again be contacted tomorrow, 10/27/2019. The case was also discussed with the patient's hospitalist as well as with infectious disease. I will continue to monitor as needed while in the hospital. In the meantime, will continue his cardiac meds. OSIEL
[2019-10-27 07:36] LABS: INR 2.33; PROTHROMBIN TIME 25.4 SECONDS (11.8-14.0)
[2019-10-27 07:47] LABS: BLOOD UREA NITROGEN 13 MG/DL (7-18); CALCIUM LEVEL 9.1 MG/DL (8.5-10.1); CARBON DIOXIDE LEVEL 28 MEQ/L (21-32); CHLORIDE LEVEL 105 MEQ/L (98-107); CREATININE FOR GFR 0.84 MG/DL (0.70-1.30); GLOMERULAR FILTRATION RATE > 60.0 (>60); GLUCOSE, FASTING 79 MG/DL (70-100); POTASSIUM SERUM 4.1 MEQ/L (3.5-5.1); SODIUM LEVEL 139 MEQ/L (136-145)
--- NOTE | 2019-10-27 08:48 | CR ---
DATE OF CONSULTATION: 10/25/2019 CARDIOLOGY CONSULTATION: REFERRING PROVIDER: Dr. Jackson White REASON FOR CONSULT: Chest pain, fever, history of endocarditis and mechanical aortic valve. 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 He was told to come to the emergency room (ER) for further evaluation. He was admitted for further management and monitoring, and cardiology consult was called. 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 He came to [facility] and was found to have abdominal pain, but he stated it was related to constipation. He denies any dysuria, polyuria, or hematuria. He has a past medical history positive for hypertension and at one point, initially when he was treated for the endocarditis, he had moderate splenomegaly. His left ventricular ejection fraction (LVEF) remained normal, but he had moderate to severe aortic regurgitation associated with the vegetations. He also was in heart failure. He had aortic valve replacement with a mechanical aortic valve, On-X 21, midline sternotomy, with Dr. He Vega from [facility] in [place], [place]. He does have a history of anxiety. He has been on chronic anticoagulation therapy since that surgery. Note also that at the same time, the patient had aortic root replacement with a patch. There is no history of diabetes mellitus, hyperlipidemia, positive coronary artery disease, prior myocardial infarction, thyroid disorders, kidney disease, lung disease. MEDICATION: According to my last office notes: - hydralazine 10 mg by mouth twice a day - lisinopril 10 mg by mouth daily - aspirin 81 mg by mouth daily - lorazepam as needed 1 mg for anxiety - metoprolol succinate 25 mg by mouth twice a day - Coumadin/warfarin as recommended based on his INR FAMILY HISTORY: Positive for hypertension and unspecified heart disease. SOCIAL HISTORY: Patient lives with his in [place], [place]. He does not smoke or abuse alcohol. He denies any ethyl alcohol (EtOH) abuse or illicit drugs. ALLERGIES: No known drug allergies. ADVANCE DIRECTIVES: Patient is a FULL CODE. PHYSICAL EXAMINATION: Patient is alert and oriented, in no acute distress at rest, and appears to be anxious. His vital signs yesterday revealed a blood pressure of 121/56 with pulse reported to be 101; but when I saw him in the emergency department (ED), his pulse was up to 120 beats per minute. Respirations 18-20, and his maximum temperature was 99.2 degrees Fahrenheit with an oxygen saturation of 99% on room air. Examination of the head: Atraumatic. Neck: Did not reveal any carotid bruits. The heart examination revealed regular heart sounds without gallops. The point of maximal impulse (PMI) is not displaced. There is no rub. There is a systolic murmur over the precordium and louder at the base of the heart without any significant radiation. The lungs were clear without any wheezing or crackles. Abdomen is unremarkable. Extremities revealed no pedal edema. Neurological examination was limited, but no focal deficit. LABS: CBC on 10/25/2019 revealed a WBC of 10.7, hemoglobin 14.6, hematocrit 44.8, and platelet 236,000. BMP revealed a sodium of 137, potassium 3.8, chloride 102, CO2 of 28, BUN 11, creatinine 0.89, GFR more than 60, fasting glucose 99. Calcium was 9.4. Liver enzymes revealed a total bilirubin of 0.7, direct bilirubin 0.2, AST 15, ALT 25, alkaline phosphatase 77, total protein 7.1, albumin 3.9. Serum troponin was less than 0.02. Serum Pro-BNP was 197. PT and INR were 21.5 and 1.90, respectively. Chest x-ray on 10/25/2019 revealed no acute disease process. No manifestation of heart failure. There were findings consistent with median sternotomy surgery and aortic valve replacement. EKG on admission in the ER revealed sinus tachycardia at 111 beats per minute, and more ST elevation was noted in the anterolateral leads and the inferior leads when compared with prior tracing. There was ST depression noted in V1 and V2. There were also diffuse ST-T abnormalities/T wave inversion. This EKG was compared to prior tracing; it seems that there is now more ST elevation. IMPRESSION: 1. Chest pain in this 24-year-old male and associated with low-grade fever, myalgia/arthralgia, chills, and recent diagnosis and treatment for infective endocarditis of his aortic valve in June of 2019 and for which he had aortic valve replacement on 08/07/2019 in [place], [place]. The description of his chest pain seems to be consistent with pericarditis. His EKG today revealed more ST elevation. Case was discussed with hospitalist, and he will be started on colchicine. He had an echocardiogram done, and it revealed normal global left ventricular systolic function with a small pericardial effusion and right pleural effusion. At the same time, there was an echogenic structure elongated on the ventricular side/surface of the aortic valve and vegetation must be considered. I am thinking about proceeding with a transesophageal echocardiogram for further evaluation, and this was discussed with the patient as well as his hospitalist. I will discuss that also with Dr. Purcell, who will be doing the transesophageal echocardiogram (MENDEZ) if he is available. 2. 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 He completed IV antibiotic and was managed by infectious disease (ID) from [facility]. He had his aortic valve replacement on 08/07/2019. 3. Mechanical aortic valve, On-X; and based on that type of valve, his INR can be between 2.0 and 3.0 and the plan was to continue like that until the end of October and from there, his INR range will be lower, between 1.5 and 2.0. 4. Hypertension, under control. When I saw him at the last office visit, I started tapering off his hydralazine and will continue to do so based on his pressure. 5. Abnormal EKG but more ST elevation noted on today's EKG in the inferior leads as well as the anterolateral lead. I am also concerned about pericarditis, and the plan is to start him on colchicine. It was a pleasure to participate in the care of Mr. Navjot Bryant for his underlying cardiac condition. I will continue to monitor him along with you. Please do not hesitate to call if any questions. OSIEL
[2019-10-27] MEDS: METOPROLOL TART 25 MG TABLET PO SCH (09:33)
[2019-10-27] MEDS: ASPIRIN 81 MG ENTERIC TAB PO SCH (09:33)
[2019-10-27] MEDS: lisinopriL 10 MG TAB PO SCH (09:33)
[2019-10-27] MEDS: PANTOPRAZOLE 40MG TAB (PROTONIX) PO SCH (09:33)
[2019-10-27 09:34] VITALS: BP 138/74
[2019-10-27] MEDS: COLCHICINE 0.6 MG TAB PO SCH (09:34)
[2019-10-27] MEDS: **hydrALAZINE** 10 MG TAB PO SCH (09:34)
--- NOTE | 2019-10-27 12:59 | IPNPDOC ---
Date Seen The patient was seen on 10/27/19. Progress Note SUBJECTIVE: 24-year-old male with past medical history of endocarditis status post mechanical aortic valve replacement in July 2019 and hypertension, presents from home with feeling feverish, chills, sweats, myalgias, arthralgias, and pleuritic chest pain. Patient's significant other has sore throat; patient reports similar symptoms to his previous episode of endocarditis. Patient contacted his fingernail former, Dr. Flannery advised him to come to the hospital for further evaluation. Patient is comfortably laying in bed, no additional complaints, afebrile, in the ED. He denies any shortness of breath, nausea, vomiting, abdominal pain or diarrhea. 10/26/19 Patient seen in the morning, comfortable in chair, continues to have pleuritic chest pain, no other complaints. TTE shows possible regurgitation over mechanical aortic valve. 10/27/19 Patient seen in the morning, comfortable in bed, significant improvement in chest pain, no other symptoms at this time, scheduled for MENDEZ later today. 10 point review of system is negative except for above PHYSICAL EXAMINATION: VITAL SIGNS: Please see below. GENERAL: No distress HEENT: Normocephalic, atraumatic, moist mucous membranes NECK: Supple CARDIOVASCULAR EXAMINATION: S1, S2, mechanical click appreciated, no murmurs RESPIRATORY EXAMINATION: Clear to auscultation, no wheezing ABDOMINAL EXAMINATION: Soft, nontender, nondistended, positive bowel sounds EXTREMITIES: Range of motion intact SKIN: No rash NEUROLOGICAL EXAMINATION: Alert and oriented 3, no focal deficits PSYCHIATRIC EXAMINATION: Calm and cooperative LABORATORY DATA: See below. IMAGING: Chest x-ray without acute pathology MICROBIOLOGY: Please see below. ASSESSMENT: 24-year-old male with past medical history of endocarditis status post mechanical aortic valve replacement and hypertension presents with symptoms concerning for systemic infection. PLAN: 1. Possible endocarditis TTE showing possible vegetation over aortic valve, scheduled for MENDEZ later today, blood cultures negative to date, continue empiric vancomycin and gentamicin, infectious disease following. 2. Acute pericarditis. Symptoms and EKG suggestive of pericarditis, continue colchicine and ibuprofen. Protonix for GI prophylaxis 2. Hypertension Continue lisinopril, metoprolol and hydralazine 3. Mechanical aortic valve. INR subtherapeutic, give additional dose of Coumadin today. Patient did not receive his extra dose yesterday. DVT prophylaxis: On Coumadin. GI prophylaxis: Protonix VS, I&O, 24H, Fishbone Vital Signs/I&O Vital Signs Date Time Temp Pulse Resp B/P (MAP) Pulse Ox O2 Delivery O2 Flow Rate FiO2 10/27/19 09:34 138/74 10/27/19 09:33 84 10/27/19 06:00 97.4 18 100 Room Air I&O- Last 24 Hours up to 6 AM 10/27/19 06:00 Intake Total 2600 ml Output Total 2900 ml Balance -300 ml Laboratory Data 24H LABS Laboratory Tests 2 10/26/19 13:13: Erythrocyte Sedimentation Rate 35H, C-Reactive Protein, Quantitative 12.20H, Gentamicin Level Trough 0.3, Vancomycin Level Trough 10.4 10/26/19 15:13: Gentamicin Level Peak 2.7L 10/27/19 06:38: Nucleated Red Blood Cells % (auto) 0.0, Prothrombin Time 25.4H, Prothromb Time International Ratio 2.33, Anion Gap 6L, Glomerular Filtration Rate > 60.0, Calcium Level 9.1 CBC/BMP Laboratory Tests 10/27/19 06:38 Microbiology Microbiology 10/25/19 Blood Culture - Preliminary, Resulted No growth after 24 hours . All specim... 10/25/19 Respiratory Virus Panel (PCR) (JODIE) - Final, Complete 10/25/19 Blood Culture - Preliminary, Resulted No growth after 24 hours . All specim... 10/25/19 Blood Culture - Preliminary, Resulted No growth after 24 hours . All specim... EVARISTO PATEL MD Oct 27, 2019 12:59
--- NOTE | 2019-10-27 15:03 | IPN ---
DATE: 10/27/2019 Mr. Bryant is seen and examined at the bedside this morning. He reports that his chest pain is somewhat better, although now he reports that he has left shoulder pain. He asked if his diagnosis is related to joint pain because he has noticed his shoulder pain and achiness worsening over the course of this illness. 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 We spoke to Dr. Purcell this morning about the possibility of the patient having a transesophageal echocardiogram today, which will take place this afternoon. Otherwise, the patient has no complaints. He had no fevers overnight and no major changes reported from nursing. Objectively, his vital signs; temperature 97.4, pulse 75, respiratory rate 18, blood pressure 105/65, pulse oximetry is 100% on room air. Generally, he is sitting up in bed. He is calm, cooperative, in no acute distress. He is very pleasant. Head is normocephalic, atraumatic. HEENT exam: Pupils are equally round and reactive to light. Extraocular movements are intact. Moist mucous membranes. Neck: Supple. No thyromegaly, no lymphadenopathy. Chest: He has even chest rise. Lungs: He is clear to auscultation bilaterally with no adventitious breath sounds appreciated. Slightly decreased breath sounds in the bases bilaterally. Cardiovascular: He is regular rate and rhythm with no murmurs, rubs, or gallops. Normal S1, normal S2. His abdomen is soft and nontender to palpation with positive bowel sounds. No masses, no organomegaly. His extremities have no clubbing, cyanosis, or edema. Psychiatric: He is awake, alert, and oriented times three with normal mood and normal affect. Neurologic: His cranial nerves II-XII intact with no focal deficit appreciated. Skin: He has no new rashes. LABS: Today, he had a CBC, which demonstrated a white blood cell count of 6.5, hemoglobin of 13.2, hematocrit of 41.4. His chemistries; sodium 139, potassium of 4.1, chloride 105, bicarbonate 28, BUN of 13, and creatinine of 0.84. His calcium is 9.1. His CRP drawn yesterday was 12.2, and a procalcitonin was 0.08. MICROBIOLOGY: He has had no growth on blood cultures for the past 48 hours. RVP was negative. The third set of blood cultures after 24 hours, there is no growth as well. He has no new imaging. ASSESSMENT: This is a 24-year-old male with recent history of Streptococcus oralis endocarditis, recently is status post aortic valve replacement and 4 weeks of antibiotic therapy with ceftriaxone, who presents with flu-like symptoms, most concerning for possibility of post-pericardectomy syndrome with pleural effusions, pericardial effusion and chest pain consistent with pericarditis versus versus endocarditis on the prosthetic valve based on abnormal TTE . PLAN: The patient will go for a transesophageal echocardiogram today with Dr. Purcell. At that point, his aortic valve can be examined for any further vegetations concerning for prosthhetic valve endocarditis . All of his questions were answered in regards to the empiric treatment for his post-pericardectomy syndrome. Should he be found to have endocarditis, we will treat him appropriately with antibiotic therapy, if not, he can most likely go home with either the colchicine and ibuprofen prescribed and can followup with cardiology at a later time. We would recommend also that if the patient is going to be on the empiric treatment, that he be started on a proton pump inhibitor for his gastrointestinal (GI) protection. OSIEL
[2019-10-27] MEDS ORDERED: fentaNYL 100 MCG/2 ML INJECTION (J3010) As Ordered ONE (15:39)
[2019-10-27] MEDS ORDERED: LIDOCAINE 2% INJ 100 MG/5 ML SDV (FOR ANES.) As Ordered ONE (15:40)
[2019-10-27] MEDS ORDERED: propofoL 200 MG/20 ML VIAL As Ordered ONE (15:40)
[2019-10-27] MEDS ORDERED: CETACAINE SPRAY 5GM As Ordered ONE (15:50)
[2019-10-27] MEDS ORDERED: LIDOCAINE VISCOUS 2% SOLN 15ML UDC As Ordered ONE (15:50)
[2019-10-27] MEDS ORDERED: LR 1,000 ML IV SCH (17:00)
[2019-10-27] MEDS ORDERED: WARFARIN SOD 4 MG TAB PO SCH (17:00)
[2019-10-27] MEDS ORDERED: WARFARIN SOD 4 MG TAB PO ONE (17:00)
[2019-10-27] MEDS ORDERED: ONDANSETRON 4MG/2ML VIAL (J2405) IV PRN (17:00)
[2019-10-27 17:25] VITALS: BP 118/63
[2019-10-27 17:55] VITALS: BP 123/69
[2019-10-27 18:25] VITALS: BP 125/68
[2019-10-27] MEDS ORDERED: COLC1TAB13 PO (18:46)
[2019-10-27] MEDS ORDERED: IBUP200C25 PO (18:46)
[2019-10-27] MEDS ORDERED: PANT40TA3 PO ×2 (18:46→18:48)
--- NOTE | 2019-10-27 20:05 | T-ECHO ---
DATE OF PROCEDURE: 10/27/2019 SEMIAUTOMATIC TAPER OPERATOR: Jluis Purcell MD INDICATION: Fever in patient with recent aortic valve replacement in setting of endocarditis. BRIEF HISTORY Mr. Mclaughlin is a 24-year-old man who presented in July 2019 with febrile illness that turned out to be aortic valve endocarditis. He underwent aortic valve replacement and ascending aortic replacement in [facility] and received mechanical aortic prosthesis. He was doing well clinically until approximately 4 days ago when he started having chest pain and sharp pleuritic sounding chest discomfort. He was admitted to this facility and transthoracic echocardiogram reveal evidence for trivial pericardial effusion but there was also poorly visualized echodensity on the ventricular aspect of the aortic valve. I was asked to perform transesophageal echocardiogram by Dr. Mehta. The patient's blood cultures have been consistently negative and he is feeling better while being treated with NSAIDs and colchicine. I spoke with the patient about the indication for the procedure, its potential complications and indication. He signed appropriate consent shortly before the procedure was performed. I examined the patient and did not find any differences compared to note from this morning by his ID attending team. PROCEDURE NOTE Procedure was performed in the operating room. The patient was fasting since early this morning for a total more than 8 hours. After appropriate time-out was taken and all monitors were applied, his posterior pharynx was anesthetized using lidocaine spray and viscous lidocaine. He was then positioned in left lateral decubitus position. Bite block was applied. Anesthesiology provided sedation. When appropriate level of sedation was accomplished probe was introduced into esophagus and later stomach without difficulty. After appropriate images were taken the probe was withdrawn. There were no immediate complications and the patient tolerated the procedure well. FINDINGS Normal left ventricular systolic function, estimated ejection fraction (EF) around 60-65%. Right ventricle also appears to have normal systolic function. Both atria appear normal. Atrial septum is intact based on two-dimensional and color Doppler imaging. There is normal flow in both left-sided and right-sided pulmonary veins. Left atrial appendage is relatively small and free of thrombi. Mitral valve appears normal. It has normal mobility and no vegetations. By color Doppler imaging, there is trivial mitral insufficiency. Tricuspid valve also appears normal. Good mobility and trivial insufficiency by color Doppler imaging. Quality of signal was not sufficient to adequately estimate pulmonary artery pressure. Pulmonic valve was relatively poorly visualized. On transesophageal views, it was in the shadow of aortic prosthesis. But based on limited views it appears normal without evidence for stenosis or insufficiency. There is a mechanical prosthesis in aortic position. I did not appreciate presence of any vegetations. Peak gradient was 33 and mean gradient 16 mmHg. There was a trivial insufficiency of the valve which is normal for this particular type of prosthesis. I did not appreciate any pericardial effusion. Visualized segment of ascending aorta and descending aorta appear normal. CONCLUSIONS 1. Normal LV systolic function. 2. Normal RV systolic function. 3. Trace mitral and tricuspid insufficiency. 4. Normal function of aortic mechanical prosthesis. COMMENT Subacute bacterial endocarditis (SBE) prophylaxis is recommended. No visualized vegetations, no evidence for bacterial endocarditis. Results were of the study were communicated to Dr. Mehta. OSIEL
== END 2019-10-27 20:00 | disposition home or self-care (01) | DRG 316 ==
LOC: M ED 11:07 → M ED INP 14:23 → ENRESERVDT 15:13 → ENRESERVTM 15:13 → M MSPAV 16:14
PROVIDERS: ADMIT Internal Medicine; ATTEND Internal Medicine
PROC: B24BZZ4 Ultrasonography of Heart with Aorta, Transesophageal (ICD-10-PCS; principal; 2019-10-27 17:00)
DX: I30.9 Acute pericarditis, unspecified (principal); I10 Essential (primary) hypertension; Z95.2 Presence of prosthetic heart valve; R07.81 Pleurodynia; M79.10 Myalgia, unspecified site; M25.50 Pain in unspecified joint; Z79.899 Other long term (current) drug therapy; Z79.82 Long term (current) use of aspirin; Z79.01 Long term (current) use of anticoagulants

== ENCOUNTER 2019-11-10 14:03 | Outpatient (RCR) | payer OTHER ==
[~2019-11-10] VITALS: Ht 185.4 cm; Wt 112.8 kg
[2019-11-10 14:03] VITALS: BP 112/60
[~2019-11-10 14:03] MED LIST changes: +ACET-683 PO; +COLC1TAB13 PO; +IBUP200C25 PO; +METO1TAB87 PO; +PANT40TA3 PO; +WARF-20 PO
[2019-11-10 14:35] VITALS: BP 170/90
[2019-11-10 15:21] VITALS: BP 104/64
--- NOTE | 2019-11-13 16:34 | CARECAPL ---
Assessment Account #s: Re-Assessment II (REASSESSMENT III) General Diagnoses: AVR Date of event: Aug 17, 2019 Physician: PATRICK CHAHAL MD Allergies: Coded Allergies: No Known Allergies (Unverified , 07/20/19) Date Entered Program: Sep 14, 2019 Risk strat for cardiac event: Low Exercise Date: Nov 13, 2019 Assessment: Re-Assessment II Stages of change: Preperation Exercise Prescription Plan TO EDUCATE AND BUILD ENDURANCE THROUGH MONITORED EXERCISE PROGRAM Modalities initiated: Treadmill (METS=4.77/RPE=2), Nustep (METS=5.5/RPE=2), Arm Aerometer (METS=3/RPE=3), Dumbells (8#/RPE=2), Recumbent Bike (METS=6.6/RPE=3) Frequency: 3 Duration (Minutes) 30 - 60 minutes total exercise a day. 15 - 20 work intervals in minutes. PRN rest intervals in minutes. Functional Capacity Goal Sustained Metabolic Equivalent of a task (MET) goal of 4.75-5.75 for 15-20 minutes. Intensity: 3-Moderate Progression (METS) Increase by: 0.5 METS every: 5 sessions TOLERATED Angina with ex: No Target Heart Rate REST +35-40 Resistance Training: Yes Weight (pounds): 8 Reps: 12-15 Hypertension: Yes Hypertension controlled with: Medication Resting 112/60 Peak Exercise BP 170/90 Medications Scheduled Aspirin (Aspir 81), 81 MG PO DAILY, (Reported) Colchicine (Colchicine), 0.6 MG PO BID Hydralazine HCl (Hydralazine HCl), 10 MG PO BID, (Reported) Ibuprofen (Ibuprofen), 3 CAP PO Q8H Lisinopril (Lisinopril), 10 MG PO DAILY, (Reported) Metoprolol Tartrate (Metoprolol Tartrate), 25 MG PO BID, (Reported) Pantoprazole Sodium (Pantoprazole Sodium), 40 MG PO BID Warfarin Sodium (Warfarin Sodium), 8 MG PO QPM, (Reported) Scheduled PRN Acetaminophen (Acetaminophen), 1,000 MG PO TID PRN for PAIN, (Reported) Current BP 104/64 Med Change: No Intervention Education: Self pulse (SEE EDUCATION ON PRIOR ITP, CONTINUE TO EDUCATE AND REINFORCE THROUGHOUT PROGRAM) Education Goals Met: No (PROGRSSING TOWARD GOALS) Target Goals Individual exercise Rx (1) BP 140/90 or 130/80 if DM or CKD (1) Aerobic active 30+min 5 days per week (1) Nutrition Date: Nov 13, 2019 Assessment: Re-Assessment II (REASSESSMENT III) Stages of change: Preperation Med Change: No Diabetes Diabetes: No Weight Management Weight (lbs): 206.8 Special Diet: regular Alcohol: weekly Alcohol Type: beer Alcohol Amount: 2 Current Weight (pounds): 206.8 Intervention Custom Framing Specialist Consult: No Nurse/patient discussion: Yes Dietary Goals TO CHOOSE HEART HEALTHY DIET CHOICES, SMALLER PORTIONS Diet Class: Yes (WILL SEE ACID POLYMERIZATION OPERATOR WHILE IN CARDIAC REHAB PROGRAM) Referral to Diabetes education: No Referral to lipid clinic: No Referral to weight mangement p: No Education Eating Healthy Education Goals Met: No (PROGRESSING TOWARD GOALS) Target goal LDL-C<100 if triglycerides are >200 Non-HDL-C should be <130 (1) LDL-C<70 for high risk patients (4) HbA1c<7% (1) BMI<25 Waist cir<40in M/<35in F (1) Education Date: Nov 13, 2019 Assessment: Re-Assessment II (REASSESSMENT III) Learning Barriers: ready Stages of change: Preperation Family Support: Yes Tobacco use: No Tobacco Use Smokeless tobacco: No Intervention Referral to smoking cessation: No Individual education and couns: No Tobacco Adjunct: No Education class schedule given: No Attended education classes: No Education: tobacco triggers (SEE EDUCATION ON PRIOR ITP'S, WILL CONTINUE TO EDUCATE AND REINFORCE WHILE IN CARDIAC REHAB PROGRAM) Education Goals Met: No (PROGRESSING TOWARD GOALS) Target Goals Complete cessation of tobacco use (1). Psychosocial Date: Nov 13, 2019 Assessment: Re-Assessment II (REASSESSMENT III) Stages of change: Preperation Intervention Physician Consult: No Physician Referral: No Med Change: No Stress Management Class: No Uses Stress Management Skills: Yes Education Education: Coping Techniques (SEE EDUCATION ON PRIOR ITP'S, WILL CONTINUE TO EDUCATE AND REINFORCE WHILE IN PROGRAM) Education Goals Met: No (PROGRESSING TOWARD GOALS) Target Goal Assess presence or absence of depression using a valid screening tool (1). Maximize coping skills (2). Positive support system (2). Patient/Program Goal Preventative Medication: Yes Aspirin, Yes Beta blockade, Yes MARLENY Inhibitor, Yes Other (COUMADIN) Fall Risk Assess: Yes (NOT A FALL RISK) Provider Assessment Session Number: 9 Provider Assessment: Proceed with rehab Silver Norris RN Nov 13, 2019 16:34
--- NOTE | 2019-11-17 13:08 | CARECAPL ---
General Allergies: Coded Allergies: No Known Allergies (Unverified , 07/20/19) Exercise Prescription Duration (Minutes) 30 - 60 minutes total exercise a day. 15 - 20 work intervals in minutes. PRN rest intervals in minutes. Functional Capacity Goal Sustained Metabolic Equivalent of a task (MET) goal of for minutes. Progression (METS) Increase by: METS every: sessions Medications Scheduled Aspirin (Aspir 81), 81 MG PO DAILY, (Reported) Colchicine (Colchicine), 0.6 MG PO BID Hydralazine HCl (Hydralazine HCl), 10 MG PO BID, (Reported) Ibuprofen (Ibuprofen), 3 CAP PO Q8H Lisinopril (Lisinopril), 10 MG PO DAILY, (Reported) Metoprolol Tartrate (Metoprolol Tartrate), 25 MG PO BID, (Reported) Pantoprazole Sodium (Pantoprazole Sodium), 40 MG PO BID Warfarin Sodium (Warfarin Sodium), 8 MG PO QPM, (Reported) Scheduled PRN Acetaminophen (Acetaminophen), 1,000 MG PO TID PRN for PAIN, (Reported) Target Goals Individual exercise Rx (1) BP 140/90 or 130/80 if DM or CKD (1) Aerobic active 30+min 5 days per week (1) Target goal LDL-C<100 if triglycerides are >200 Non-HDL-C should be <130 (1) LDL-C<70 for high risk patients (4) HbA1c<7% (1) BMI<25 Waist cir<40in M/<35in F (1) Target Goals Complete cessation of tobacco use (1). Target Goal Assess presence or absence of depression using a valid screening tool (1). Maximize coping skills (2). Positive support system (2). Provider Assessment Provider Assessment: No changes (Cardiac Rehab Program closed due to COVID-16, patient account to be put on hold) Silver Norris RN Nov 17, 2019 13:08
== END 2019-11-28 ==
LOC: M CR 14:03
PROVIDERS: ATTEND Internal Medicine Cardiovascular Disease
DX: Z51.89 Encounter for other specified aftercare (principal); Z95.3 Presence of xenogenic heart valve; I35.0 Nonrheumatic aortic (valve) stenosis

== ENCOUNTER 2020-02-14 03:12 | Emergency (ER) | payer OTHER ==
[~2020-02-14] VITALS: Ht 185.4 cm; Wt 100.0 kg
[2020-02-14] MEDS ORDERED: VALS1TAB66 (03:19)
[2020-02-14 03:53] LABS: BASO % 0.3 % (0.0-1.0); EOS # 0.2 10^3/uL (0.0-0.5); EOS % 2.1 % (0.0-3.0); HEMOGLOBIN 14.3 g/dl (13.5-17.5); LYMPH # 2.4 10^3/uL (1.5-5.0); LYMPH % 33.4 % (24.0-44.0); MEAN CORPUSCULAR HEMOGLOBIN 29.3 pg (27.0-33.0); MEAN CORPUSCULAR VOLUME 86.1 fl (80.0-96.0); MONO # 0.6 10^3/uL (0.0-0.8); MONO % 8.8 % (0.0-5.0); NEUTROPHILS # 3.9 10^3/uL (1.5-8.5); NEUTROPHILS % 55.1 % (36.0-66.0); PLATELET COUNT, AUTOMATED 220 10^3/uL (150-450); RED BLOOD COUNT 4.88 10^6/uL (4.30-6.10); WHITE BLOOD COUNT 7.1 10^3/uL (4.0-10.0)
[2020-02-14 04:04] LABS: INR 1.52
[2020-02-14 04:13] LABS: ALBUMIN 4.1 GM/DL (3.2-5.2); ALT/SGPT 27 U/L (12-78); BILIRUBIN,DIRECT 0.1 MG/DL (0.0-0.2); BILIRUBIN,TOTAL 0.4 MG/DL (0.2-1.0); CK-MB VALUE MASS < 1.0 NG/ML (<3.6); CPK CREATINE PHOSPHOKINASE 153 U/L (39-308); LIPASE 72 U/L (73-393); MB/CK RELATIVE INDEX 0.65 (< OR =4); TOTAL PROTEIN 6.7 GM/DL (6.4-8.2); TROPONIN I < 0.02 NG/ML (< 0.10)
[2020-02-14] MEDS ORDERED: KETOROLAC 30 MG/ML 1ML VIAL IV ONE (04:30)
[2020-02-14 04:31] LABS: C REACTIVE PROTEIN QUANTITATIV 0.43 MG/DL (0.00-0.30)
[2020-02-14 04:45] LABS: ERYTHROCYTE SEDIMENTATION RATE 1 mm/hr (0-15)
[2020-02-14 05:00] LABS: PARTIAL THROMBOPLASTIN TIME 31.2 SECONDS (25.0-38.4)
[2020-02-14] MEDS ORDERED: IBUP-1022 PO (05:26)
[2020-02-14] MEDS ORDERED: PROT1TAB2 PO (05:26)
[2020-02-14 05:30] VITALS: BP 108/54
--- NOTE | 2020-02-14 06:45 | REP ---
Clinical: Chest pain . Comparison: 10/25/2019 . Findings: The mediastinum and cardiac silhouette are stable and within normal limits for portable technique. The lung luna are clear without acute consolidation, effusion, or pneumothorax. Skeletal structures are intact. Impression: No acute cardiopulmonary process appreciated. Electronically Signed by Elvin Dotson MD 02/14/2020 06:37 A
--- NOTE | 2020-02-14 08:32 | ECGEPIP ---
[facility] - ED Test Date: 2020-02-14 Pat Name: THELMA MARROQUIN Department: Room: - Gender: Male Queen Producer: : [id number] Requested By: NIRMAL Jones Order Number: [id number] Reading MD: Fercho Rush Measurements Intervals [place] Rate: 69 P: 32 HI: 159 QRS: 60 QRSD: 91 T: 77 QT: 390 QTc: 419 Interpretive Statements SINUS RHYTHM POSSIBLE INCOMPLETE RIGHT BUNDLE BRANCH BLOCK NSTTW ABNORMALITIES SIMILAR TO 10/25/19 Electronically Signed on 02-14-2020 8:32:10 EDT by Fercho Rush
== END 2020-02-14 05:57 | disposition home or self-care (01) ==
LOC: M ED 03:12
DX: I31.9 Disease of pericardium, unspecified (principal); Z79.899 Other long term (current) drug therapy; Z79.82 Long term (current) use of aspirin; Z79.01 Long term (current) use of anticoagulants
CPT/HCPCS: 71045; 80047; 80076; 82550; 82553; 83690; 84484; 85025; 85610; 85652; 85730; 86140; 93005; 93041; 94760; 96374; 99291; J1885